=== PATIENT | female | born 1985 | race Caucasian/White ===

== ENCOUNTER 2016-09-19 06:12 | Day surgery (SDC) | payer OTHER ==
[2016-09-18 14:12] VITALS: BMI 23.8
--- NOTE | 2016-09-18 17:21 | HP ---
Admitting History and Physical - Admission Chief Complaint: Chronic nasal obstruction/sinusitis History of Present Illness: 31 yo female with chronic nasal congestion/sinus pressure and headaches with loss of smell. Symptoms unrelieved with medical therapy. Pt noted to have DNS, enlarged turbinates and chronic sinusitis. History Source: Patient Limitations to Obtaining History: No Limitations - Past Medical History ...LMP: 09/05/16 Psych: Yes: Anxiety ENT: Yes: Sinusitis - Past Surgical History Past Surgical History: Yes: None - Smoking History Smoking history: Never smoked Have you smoked in the past 12 months: No Aproximately how many cigarettes per day: 0 - Alcohol/Substance Use Hx Alcohol Use: No Home Medications - Allergies Allergies/Adverse Reactions: Allergies Allergy/AdvReac Type Severity Reaction Status Date / Time IV CONTRAST Allergy Hives Uncoded 09/18/16 14:12 - Home Medications Home Medications: Ambulatory Orders Botulinum Toxin A [Botox (Nf)] 100 units IJ ASDIR 09/18/16 Buspirone HCl [Buspar -] 5 mg PO HS 09/18/16 Loratadine [Claritin] 10 mg PO PRN 09/18/16 Paroxetine HCl [Paxil] 20 mg PO TID 09/18/16 Family Disease History - Family Disease History Family History: Unremarkable Review of Systems - Review of Systems Constitutional: reports: No Symptoms HENT: reports: Nasal Congestion Neck: reports: No Symptoms Neurological: reports: Headache Physical Examination Constitutional: Yes: Well Nourished, No Distress Eyes: Yes: WNL HENT: Yes: Nasal Congestion, Other (deviated nasal septum, enlarged turbinates) Respiratory: Yes: WNL Musculoskeletal: Yes: WNL Extremities: Yes: WNL Neurological: Yes: Alert, Oriented Imaging - Results Cat Scan: Report Reviewed, Image Reviewed Problem List - Problems (1) Deviated nasal septum Assessment/Plan: Pt for septoplasty/SMR of turbinates Code(s): J34.2 - DEVIATED NASAL SEPTUM (2) Chronic sinusitis Assessment/Plan: PT for Endoscopic sinus surgery Code(s): J32.9 - CHRONIC SINUSITIS, UNSPECIFIED Qualifiers: Sinusitis location: pansinusitis Qualified Code(s): J32.4 - Chronic pansinusitis Assessment/Plan Pt for septoplasty/SMR of turbinates and ESS.
[2016-09-19] MEDS ORDERED: COCAINE HCL 4% TOPICAL SOLUTION 4 ML BOTTLE TP ONE ×2 (07:25→08:23)
[2016-09-19] MEDS ORDERED: LIDOCAINE 1%/EPI 1:100000 (50 ML MULTI DOSE VIAL) ONE (07:30)
[2016-09-19] MEDS ORDERED: ROCURONIUM BROMIDE 50 MG/5 ML VIAL ONE (07:55)
[2016-09-19] MEDS ORDERED: PROPOFOL 20 ML ONE ×3 (07:55→10:20)
[2016-09-19] MEDS ORDERED: MIDAZOLAM HCL 2 MG/2 ML SINGLE DOSE VIAL ONE ×2 (07:56)
[2016-09-19] MEDS ORDERED: DEXAMETHASONE SOD PHOSPHATE 4 MG/1 ML VIAL ONE (08:21)
[2016-09-19] MEDS ORDERED: LIDOCAINE 1%/EPI 1:100000 (50 ML MULTI DOSE VIAL) INF ONE (08:23)
[2016-09-19] MEDS ORDERED: DESFLURANE GAS 240 ML BOTTLE IH ONE (08:47)
[2016-09-19] MEDS ORDERED: oxyCODONE HCL 5 MG TABLET PO PRN (09:28)
[2016-09-19] MEDS ORDERED: ONDANSETRON 4 MG/2 ML VIAL IVPUSH PRN (09:28)
[2016-09-19] MEDS ORDERED: PROMETHAZINE HCL 25 MG/1 ML VIAL IVPUSH PRN (09:28)
[2016-09-19] MEDS ORDERED: LACTATED RINGERS SOLUTION 1,000 ML IV SCH (09:30)
[2016-09-19] MEDS ORDERED: BACITRACIN 30 GM TUBE TOPICAL OINTMENT ONE (10:10)
--- NOTE | 2016-09-19 10:18 | HP ---
History & Physical Update - History History: No Change - Physical Physical: No Change - Assessment Assessment: No Change - Plan Plan: No Change
[2016-09-19 12:30] VITALS: TEMP 99
[2016-09-19 13:57] VITALS: BP 128/74; PULSE 84
--- NOTE | 2016-09-20 14:01 | PATH ---
Surgical Pathology Report Patient Name: GUERO BRASWELL Med. Rec. #: [id number] /Age/Gender: 1985 (Age: 31) / F Account: [id number] Location: [facility] Taken: 09/19/2016 Received: 09/19/2016 Reported: 09/20/2016 Physicians: Kevin Richard M.D. Specimen(s) Received A: NASAL SEPTUM B: RIGHT MAXILLARY & ETHMOID TISSUE C: LEFT MAXILLARY & ETHMOID TISSUE Clinical History Deviated nasal septum Final Diagnosis A. NASAL SEPTUM, SEPTOPLASTY: BONE AND CARTILAGE WITHOUT SIGNIFICANT PATHOLOGIC CHANGES. B. MAXILLARY AND ETHMOID TISSUE, RIGHT, RESECTION: SINONASAL MUCOSA WITH CHRONIC INFLAMMATION AND FRAGMENTS OF SCLEROTIC APPEARING BONE. C. MAXILLARY AND ETHMOID TISSUE, LEFT, RESECTION: SINONASAL MUCOSA WITH CHRONIC INFLAMMATION AND FRAGMENTS OF SCLEROTIC APPEARING BONE. Electronically Signed Didier Bean M.D. Gross Description A. Received in formalin labeled "nasal septum" is a 2.7 x 1.3 x 0.3 cm aggregate of graff, irregular portions of bone and cartilage. A technical sales representatives portion is submitted in one cassette, following decalcification. B. Received in formalin labeled "right maxillary and ethmoid" is a 2.5 x 2.5 x 0.3 cm aggregate of graff soft tissue fragments admixed with possible cartilage and bone fragments. The specimen is entirely submitted in one cassette, following decalcification. C. Received in formalin labeled "left maxillary and ethmoid tissue" is a 2.3 x 2.3 x 0.3 cm aggregate of graff soft tissue fragments admixed with possible cartilage and bone fragments. The specimen is entirely submitted in one cassette, following decalcification. 09/19/2016 saudi09/19/2016
--- NOTE | 2016-09-20 16:11 | OP ---
DATE OF OPERATION: 09/19/2016 PREOPERATIVE DIAGNOSES: 1. Deviated nasal septum with obstruction. 2. Bilateral inferior turbinate hypertrophy with obstruction. 3. Chronic bilateral maxillary sinusitis. 4. Chronic bilateral ethmoid sinusitis. 5. Bilateral sphenoid sinusitis. POSTOPERATIVE DIAGNOSES 1. Deviated nasal septum with obstruction. 2. Bilateral inferior turbinate hypertrophy with obstruction. 3. Chronic bilateral maxillary sinusitis. 4. Chronic bilateral ethmoid sinusitis. 5. Bilateral sphenoid sinusitis. PROCEDURE 1. Septoplasty. 2. Submucosal resection of bilateral inferior turbinates. 3. Endoscopic sinus surgery with stereotactic navigation with bilateral total ethmoidectomies, bilateral maxillary antrostomies with tissue removal, and bilateral sphenoidotomies. ANESTHESIA: General, Eli Schaefer MD ESTIMATED BLOOD LOSS: 25 mL. FINDINGS: 1. Markedly deviated nasal septum with obstruction. 2. Bilateral inferior turbinate hypertrophy with obstruction. 3. Chronic maxillary sinusitis with polypoid changes. 4. Chronic ethmoid sinusitis with polypoid changes. 5. Chronic sphenoid sinusitis. INDICATIONS: The patient is a 31-year-old female with long history of chronic nasal obstruction, recurrent headaches and chronic sinusitis, all unrelieved with medical therapy. The patient presents for surgical intervention. The risks, benefits, alternatives of the procedure were all explained to the patient. Questions were answered and consent was signed. DESCRIPTION OF PROCEDURE: After obtaining informed consent, the patient was brought to the operating room and placed on the OR table in supine position. After induction of general anesthesia, was prepped and draped in the usual sterile fashion. V[employer] stereotactic navigation system was set up and the patient was registered with excellent accuracy. Nasal pledgets soaked in 4% cocaine were placed in the nasal cavity followed by injection of 1% lidocaine with epinephrine into the nasal septal flaps and inferior turbinates. After allowing anesthesia to take effect, a No. 15 blade was used to make a left hemitransfixion incision. Dissection was carried down to the septal cartilage. The left mucoperichondrial flap was raised over the deviated portion of the septum. Once isolated anterior to the deflection but leaving a large dorsal and collateral L strut, an incision was made through the septal cartilage. An side flap was raised intact and the deviated portion of the septum was isolated. The cartilaginous portion was removed with sharp dissection and swivel knife. Bony septum was removed using William forceps. Once removed, the airway appeared improved. Flaps were then reapproximated with 4-0 quilting plain stitch. Suture end of the incision was closed with 4-0 chromic suture. Next, attention was turned to the inferior turbinates. Left inferior turbinate was medialized. Stab incision was made anterior tip. Submucosal dissection was carried out with removal of soft tissue and anterior turbinate bone. Intramural cauterization with suction Bovie cautery was then performed. Flaps were then reapproximated. The turbinate lateralized. A similar procedure in similar fashion was performed on the right inferior turbinate. Once completed, the airway appeared markedly improved. Next, the 0-degree Storz telescope and the endoscopic sinus equipment was then brought into the field. Lidocaine with epinephrine, 1%, pledgets were placed in the region of the medial meatus, followed by injection of 1% lidocaine with epinephrine into the tip of the inferior turbinate, the root as well as the uncinate process. After allowing time for anesthesia to take effect, the right side was examined, again confirming position throughout with the navigation system. The ethmoid cells were entered. Ethmoidectomy was performed from the anterior-posterior fashion with straight and upbiting Blakesley forceps. Polypoid tissue was removed throughout the cells and, again, position was confirmed with image guidance. Next, the uncinate process was also taken down. The curved seeker was used to identify the right maxillary ostia. Using a sidebiter, maxillary antrostomy was performed and further polypoid tissue was removed from the maxillary sinus and sent to Pathology. Then, with use of the image guidance suction, the anterior wall of the sphenoid sinus was identified and sphenoidotomy was performed with suction removal of mucus. Once finished, again, pledgets were placed in the region for hemostasis. Upon palpation of the globe, no fat herniation was noted. Next, attention was then turned to the left side, where again, the middle turbinate was lateralized and the incision was made in the uncinate process, which was then taken down using straight and upbiting forceps. Total ethmoidectomy was performed from an anterior to posterior fashion, again confirming anatomy with the image guidance system. Next, the curved suction was again used to identify the left maxillary ostia. This was outfractured and separator was used to perform maxillary antrostomy and further tissue was removed and sent to Pathology. Lastly, the anterior wall of the sphenoid sinus was identified and entered with removal of mucus. Again, further hemostasis was achieved using pledgets in the middle meatus. Once hemostasis was achieved, again, no significant fat herniation was noted. No significant bleeding was noted. Miragel was placed to help stent open the medial meatus and Nasopore packing was placed inferiorly to help support the septum and control hemostasis. dressing was placed at the end of the procedure. The patient was then awoken from anesthesia, extubated and transferred to the recovery room awake, alert, in stable condition where she was noted to have intact vision and normal extraocular movements. MOOKIE KISER M.D. [id number]
== END 2016-09-19 13:45 | disposition home or self-care (01) ==
LOC: JASU-SURG 06:12
PROVIDERS: ATTEND Otolaryngology
PROC: 8E09XBZ Computer Assisted Procedure of Head and Neck Region (ICD-10-PCS; 2016-09-19)
PROC: 09TV4ZZ Resection of Left Ethmoid Sinus, Percutaneous Endoscopic Approach (ICD-10-PCS; 2016-09-19)
PROC: 09TU4ZZ Resection of Right Ethmoid Sinus, Percutaneous Endoscopic Approach (ICD-10-PCS; 2016-09-19)
PROC: 099R4ZZ Drainage of Left Maxillary Sinus, Percutaneous Endoscopic Approach (ICD-10-PCS; 2016-09-19)
PROC: 099Q4ZZ Drainage of Right Maxillary Sinus, Percutaneous Endoscopic Approach (ICD-10-PCS; 2016-09-19)
PROC: 09CX4ZZ Extirpation of Matter from Left Sphenoid Sinus, Percutaneous Endoscopic Approach (ICD-10-PCS; 2016-09-19)
PROC: 09CW4ZZ Extirpation of Matter from Right Sphenoid Sinus, Percutaneous Endoscopic Approach (ICD-10-PCS; 2016-09-19)
PROC: 09BM4ZZ Excision of Nasal Septum, Percutaneous Endoscopic Approach (ICD-10-PCS; principal; 2016-09-19 08:00)
PROC: 09TL4ZZ Resection of Nasal Turbinate, Percutaneous Endoscopic Approach (ICD-10-PCS; 2016-09-19 08:00)
PROC: 8E09XBG Computer Assisted Procedure of Head and Neck Region, With Computerized Tomography (ICD-10-PCS; 2016-09-19 08:00)
DX: J34.2 Deviated nasal septum (principal); J34.3 Hypertrophy of nasal turbinates; J32.2 Chronic ethmoidal sinusitis; J32.0 Chronic maxillary sinusitis; J32.3 Chronic sphenoidal sinusitis
CPT/HCPCS: 84703; 88302-TC; 88304-TC; 88311-TC; 94760

== ENCOUNTER 2016-09-22 12:40 | Emergency (ER) | payer OTHER ==
[2016-09-22 12:53] VITALS: BP 115/72; PULSE 97; TEMP 98.2; BMI 23.8
[2016-09-22] MEDS ORDERED: ONDANSETRON 4 MG/2 ML VIAL IVPUSH ONE (13:20)
[2016-09-22] MEDS ORDERED: SODIUM CHLORIDE 1,000 ML IV STA (13:21)
[2016-09-22] MEDS ORDERED: FAMOTIDINE 20 MG/50 ML IVPB 20 MG in PREMIX 50 IVPB ONE (13:21)
--- NOTE | 2016-09-22 13:26 | PDOC ---
History of Present Illness - General Chief Complaint: Nausea/Vomiting Stated Complaint: POST OP, VOMITING Time Seen by Provider: 09/22/16 13:05 History Source: Patient Exam Limitations: No Limitations - History of Present Illness Initial Comments: 09/22/16 13:21 CHIEF COMPLAINT: Vomiting HISTORY OF PRESENT ILLNESS: This is an otherwise healthy 31 year old female, POD #3 s/p septoplasty and endoscopic sinus surgery (discharged on codeine for pain control). She presents with three days of abdominal pain and vomiting. She notes that there is some blood in her vomitus, but that she was told by her ENT that some post-procedural nasal bleeding was normal. She has been unable to keep down any fluids. V/s on arrival are notable for P 97. PCP is Consuelo Armando. REVIEW OF SYSTEMS: GENERAL/CONSTITUTIONAL: No fever or chills. No weakness. No weight change. HEAD, EYES, EARS, NOSE AND THROAT: No change in vision. No ear pain or discharge. No sore throat. CARDIOVASCULAR: No chest pain or palpitations. RESPIRATORY: No cough, wheezing, or shortness of breath. GASTROINTESTINAL: See HPI. GENITOURINARY: No dysuria, frequency, or change in urination. MUSCULOSKELETAL: No joint or muscle swelling or pain. No neck or back pain. SKIN: No rash or easy bruising. NEUROLOGIC: No headache, vertigo, loss of consciousness, or loss of sensation. PSYCHIATRIC: No depression or anxiety. ENDOCRINE: No increased thirst. No abnormal weight change. HEMATOLOGIC/LYMPHATIC: No anemia, easy bleeding, or history of blood clots. ALLERGIC/IMMUNOLOGIC: No hives or skin allergy. No latex allergy. PHYSICAL EXAM: GENERAL: The patient is awake, alert, and fully oriented, in no acute distress. HEAD: Normal with no signs of trauma. ENT: Pupils equal, round and reactive to light, extraocular movements intact, sclera anicteric, conjunctiva clear. Neck supple. LUNGS: Clear to auscultation bilaterally. Normal excursion. No respiratory distress or use of accessory muscles. CV: RRR, S1/S2, no MRG. Cap refill < 2 sec. ABDOMEN: Soft, non-distended, tender to palpation in RLQ. EXTREMITIES: Normal range of motion, no edema. NEUROLOGICAL: Normal speech, normal gait. CN II-XII grossly intact. PSYCH: Normal mood, normal affect. SKIN: Warm, dry, normal turgor, no rashes or lesions noted. Past History - Past Medical History Allergies/Adverse Reactions: Allergies Allergy/AdvReac Type Severity Reaction Status Date / Time No Known Drug Allergies Allergy Verified 09/22/16 12:48 IV CONTRAST Allergy Hives Uncoded 09/22/16 12:48 Home Medications: Ambulatory Orders Buspirone HCl [Buspar -] 5 mg PO HS 09/18/16 Loratadine [Claritin] 10 mg PO PRN 09/18/16 Ondansetron [Zofran Odt -] 4 mg SL TID PRN #21 od.tablet 09/22/16 Anemia: Yes Asthma: No Cancer: No Cardiac Disorders: No CVA: No COPD: No CHF: No Dementia: (hx migraines) Diabetes: No GI Disorders: Yes (H PYLORI) Disorders: No HTN: No Hypercholesterolemia: No Liver Disease: No Psychiatric Problems: Yes (depression) Suicide Attempt (Hx): No Seizures: No (hx hand tremors) Thyroid Disease: No Other medical history: hx migraines&hx hand tremors - Psycho/Social/Smoking Cessation Hx Anxiety: Yes Suicidal Ideation: No Smoking Status: No Smoking History: Never smoked Have you smoked in the past 12 months: No Number of Cigarettes Smoked Daily: 0 Hx Alcohol Use: No Drug/Substance Use Hx: No Substance Use Type: None *Physical Exam - Vital Signs Last Vital Signs Temp Pulse Resp BP Pulse Ox 98.2 F 97 H 18 115/72 98 09/22/16 12:48 09/22/16 12:48 09/22/16 12:48 09/22/16 12:48 09/22/16 12:48 ED Treatment Course - LABORATORY CBC & Chemistry Diagram: 09/22/16 13:30 09/22/16 13:30 - RADIOLOGY Radiology Studies Ordered: Category Date Time Status ABDOMEN & PELVIS CT W/O CONTR [CT] Stat CT Scan 09/22/16 13:21 Ordered Medical Decision Making - Medical Decision Making 09/22/16 13:31 A/P: 31 year old female with post-operative nausea/vomiting and abdominal pain. Differential includes codeine adverse effects, appendicitis (RLQ tenderness), UTI/pyelonephritis. 1. UA/culture, urine 2. Abdominal labs 3. IV fluids 4. Zofran 4mg IVP 5. CTAP without contrast (not tolerating PO, allergy to IV contrast) 6. Re-assess 09/22/16 14:22 WBC within normal limits at 7.9. UA with 1+ ketones, consistent with dehydration. 09/22/16 15:05 -Labs unremarkable. *DC/Admit/Observation/Transfer Diagnosis at time of Disposition: Nausea and vomiting Qualifiers: Vomiting type: unspecified Vomiting Intractability: non-intractable Qualified Code(s): R11.2 - Nausea with vomiting, unspecified Abdominal pain Qualifiers: Abdominal location: right lower quadrant Qualified Code(s): R10.31 - Right lower quadrant pain - Discharge Dispostion Disposition: HOME Condition at time of disposition: Stable - Prescriptions Prescriptions: Ondansetron [Zofran Odt -] 4 mg SL TID PRN #21 od.tablet PRN Reason: Nausea - Referrals Referrals: Zaida Armando [Primary Care Provider] - 3 days - Patient Instructions Printed Discharge Instructions: DI for Vomiting -- Adult Additional Instructions: You were seen today for abdominal pain and nausea/vomiting. Symptoms may be related to codeine. Try taking acetaminophen alone for pain. Use Zofran as needed for nausea/vomiting. Follow up with your primary care doctor next week. Return here for inability to keep down fluids, worsening belly pain, or any other concerning symptoms.
[2016-09-22] MEDS ORDERED: ONDANSETRON 4 MG/2 ML VIAL ONE (13:45)
[2016-09-22] MEDS ORDERED: FAMOTIDINE 20 MG/50 ML IVPB 50 ML IVPB ONE (13:46)
[2016-09-22 14:08] LABS: BASOPHIL 0.4 % (0-2.0); EOSINOPHIL 1.9 % (0-4.5); MCH 27.7 pg (25.7-33.7); MCHC 33.4 g/dl (32.0-36.0); MEAN CELL VOLUME 83.1 fl (80-96); MEAN PLT VOLUME 7.8 fl (7.5-11.1); NEUTROPHILS 67.3 % (42.8-82.8); PLATELET COUNT 241 K/MM3 (134-434); WHITE BLOOD COUNT 7.9 K/mm3 (4.0-10.0)
[2016-09-22 14:15] LABS: URINE APPEARANCE CLEAR; URINE BILIRUBIN NEGATIVE (NEGATIVE); URINE BLOOD NEGATIVE (NEGATIVE); URINE COLOR LTYELLOW; URINE GLUCOSE (UA) NEGATIVE (NEGATIVE); URINE KETONE 1+ (NEGATIVE); URINE LEUK ESTERASE NEGATIVE (NEGATIVE); URINE NITRITE NEGATIVE (NEGATIVE); URINE PROTEIN NEGATIVE (NEGATIVE); URINE UROBILINOGEN NEGATIVE E.U./dl (0.2-1.0)
[2016-09-22] MEDS ORDERED: SODIUM CHLORIDE 1,000 ML IV SCH (14:30)
[2016-09-22 14:37] LABS: ALBUMIN 3.8 g/dl (3.4-5.0); ANION GAP 10 (8-16); CALCIUM 9.2 mg/dL (8.5-10.1); CO2 29 mmol/L (21-32); GLUCOSE,RANDOM 91 mg/dL (74-106)
[2016-09-22 14:40] LABS: ALK PHOS 50 U/L (45-117); BILIRUBIN,TOTAL 0.7 mg/dL (0.2-1.0); CREATININE 0.7 mg/dL (0.55-1.02); SGOT/AST 23 U/L (15-37); SGPT/ALT 30 U/L (12-78); TOT PROT 7.7 g/dl (6.4-8.2)
== END 2016-09-22 17:41 | disposition home or self-care (01) ==
LOC: JER 12:40
PROC: 3E033GC Introduction of Other Therapeutic Substance into Peripheral Vein, Percutaneous Approach (ICD-10-PCS; principal; 2016-09-22)
DX: T81.89XA Other complications of procedures, not elsewhere classified, initial encounter (principal); R11.2 Nausea with vomiting, unspecified
CPT/HCPCS: 36415; 74176-TC; 80053; 81003; 83690; 84703; 85025; 96365; 96375; 99282-25

== ENCOUNTER 2017-10-23 08:00 | Inpatient (IN) | payer OTHER ==
--- NOTE | 2017-10-26 09:53 | HP ---
DATE OF ADMISSION: 11/06/2017 DATE OF DICTATION: 09/20/2017 DATE OF SURGERY: 11/06/2017 BRIEF HISTORY: This is a 32-year-old female who in June was evaluated by Dr. Thomas for rectal bleeding and a strong family history of colon cancer. At that time, she underwent a full colonoscopy from anus to a large 6-cm tubulovillous polyp at approximately 20 cm from the anal verge. The polyp was completely removed endoscopically during that procedure. 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 The patient was then subsequently brought back and endoscopically underwent tattooing on the distal side and has now been referred here for surgical management. Patient has a strong family history of colon cancer, grandmother as well as grandmother's brother. PAST MEDICAL HISTORY: Significant for peptic ulcer disease, anxiety/depressive disorder, and a history of keloids. PAST SURGICAL HISTORY: Patient has had a nasal surgery. ALLERGIES: IV CONTRAST and DUST. MEDICATIONS: 1. Tylenol. 2. Orthotricycline. 3. Cyproheptadine. 4. Ciprodex. 5. Iron. 6. Paxil. 7. Buspirone. 8. Cetirizine. SOCIAL HISTORY: Patient does not smoke, and she drinks socially. PHYSICAL EXAMINATION: Abdomen: Soft, nontender, nondistended. She has a scar above the umbilicus from her previous umbilical ring. She has a small umbilical hernia noted. This is an incidental finding. Rectal: Deferred. Patient had a full colonoscopy. IMPRESSION/PLAN: Colon cancer. This is a 32-year-old female with biopsy-proven colon cancer at approximately 20 cm. Patient underwent tattooing procedure on the rectal side at the previous polypectomy site. Patient will be scheduled for a laparoscopic low anterior resection, possible open. Prior to any surgical intervention, patient has already been scheduled by her junior mechanical engineer for a CT of the abdomen and pelvis with and without contrast to evaluate for metastatic disease. The indications, alternatives, and complications of the procedure discussed at length. All questions have been answered. We will plan to obtain written consent the day of surgery. Stephanie ARIZMENDI [id number] SMALL[facility] HOSPITALHaile
[2017-11-06] MEDS ORDERED: SODIUM PHOSPHATE/NA BIPHOS 133 ML ENEMA PR SCH (09:00)
[2017-11-06] MEDS ORDERED: D5-1/2NS+20 MEQ KCL - 20 MEQ/1,000 ML INFUS.BAG IV SCH (09:00)
[2017-11-06] MEDS ORDERED: PEG3350/SOD SULF,BICARB,CL/KCL 4,000 ML SOLN.RECON PO ONE (10:45)
[2017-11-06 11:24] VITALS: BMI 26.6
[2017-11-06] MEDS: LACTATED RINGERS SOLUTION 1,000 ML IV SCH ×2 (11:37→19:30)
[2017-11-06] MEDS ORDERED: ACETAMINOPHEN 325 MG TABLET (FP) PO PRN (18:46)
[2017-11-06] MEDS ORDERED: busPIRone HCL 5 MG TABLET PO SCH (22:00)
[2017-11-07] MEDS: LACTATED RINGERS SOLUTION 1,000 ML IV SCH ×3 (02:45→16:30)
[2017-11-07] MEDS ORDERED: SODIUM PHOSPHATE/NA BIPHOS 133 ML ENEMA PR SCH (06:00)
[2017-11-07] MEDS ORDERED: ERTAPENEM SODIUM 1 GM in SODIUM CHLORIDE 100 ML IVPB ONE (07:00)
[2017-11-07 07:32] LABS: HEMATOCRIT 35.5 % (32.4-45.2); MCH 27.8 pg (25.7-33.7); MCHC 33.8 g/dl (32.0-36.0); MEAN CELL VOLUME 82.2 fl (80-96); MEAN PLT VOLUME 7.7 fl (7.5-11.1); PLATELET COUNT 286 K/MM3 (134-434); RBC 4.33 M/mm3 (3.60-5.2); RDW 14.5 % (11.6-15.6); WHITE BLOOD COUNT 8.1 K/mm3 (4.0-10.0)
[2017-11-07 07:49] LABS: CHLORIDE 105 mmol/L (98-107); POTASSIUM 3.5 mmol/L (3.5-5.1); SODIUM 141 mmol/L (136-145)
[2017-11-07 08:00] LABS: ANION GAP 9 (8-16); BLOOD UREA NITROGEN 3 mg/dL (7-18); CALCIUM 8.4 mg/dL (8.5-10.1); CO2 27 mmol/L (21-32); CREATININE 0.8 mg/dL (0.55-1.02); GLUCOSE,RANDOM 85 mg/dL (74-106)
[2017-11-07] MEDS ORDERED: PT OWN MED DRAWER 7, Y5N ONE (08:50)
[2017-11-07] MEDS ORDERED: LACTATED RINGERS SOLUTION 1,000 ML IV SCH ×2 (09:45→13:30)
[2017-11-07] MEDS ORDERED: ONDANSETRON 4 MG/2 ML VIAL IVPUSH PRN ×3 (09:45→13:24)
[2017-11-07] MEDS ORDERED: PROPOFOL 20 ML ONE ×2 (09:53→11:57)
[2017-11-07] MEDS ORDERED: ROCURONIUM BROMIDE 50 MG/5 ML VIAL ONE ×2 (09:53→10:59)
[2017-11-07] MEDS ORDERED: fentaNYL CITRATE 250 MCG/5 ML VIAL ONE ×2 (09:53→11:36)
[2017-11-07] MEDS ORDERED: MIDAZOLAM HCL 2 MG/2 ML SINGLE DOSE VIAL ONE (09:53)
[2017-11-07] MEDS ORDERED: ONDANSETRON 4 MG/2 ML VIAL ONE (09:54)
[2017-11-07] MEDS ORDERED: DEXAMETHASONE SOD PHOSPHATE 4 MG/1 ML VIAL ONE (09:54)
[2017-11-07] MEDS ORDERED: LIDOCAINE HCL/PF 2% SDV 5ML VIAL ONE (09:54)
[2017-11-07] MEDS ORDERED: GlUCAGON HUMAN RECOMBINANT 1 MG/VIAL ONE (10:28)
[2017-11-07] MEDS ORDERED: ERTAPENEM SODIUM 1 GM/50 ML PRE-DOCKED IVPB ONE (10:43)
[2017-11-07] MEDS ORDERED: NEOSTIGMINE METHYLSULFATE 0.5 MG/ML - 10 ML MDV ONE (11:54)
[2017-11-07] MEDS ORDERED: GLYCOPYRROLATE 0.2 MG/1 ML VIAL ONE (11:54)
--- NOTE | 2017-11-07 13:16 | OP ---
Operative Note - Note: Operative Date: 11/07/17 Pre-Operative Diagnosis: colon cancer Operation: laparoscopic low anterior resection Findings: tattooed sigmoid colon with previous biopsy site Post-Operative Diagnosis: Same as Pre-op Surgeon: Darek Feliz [employer] Supervisor: Nitesh Quick Anesthesia: General Specimens Removed: sigmoid colon with portion of rectum Estimated Blood Loss (mls): 30 Drains & Tubes with Location: kirsten pelvis Operative Report Dictated: Yes
[2017-11-07] MEDS ORDERED: PROMETHAZINE HCL 25 MG/1 ML VIAL IVPUSH PRN (13:24)
--- NOTE | 2017-11-07 14:20 | OP ---
DATE OF OPERATION: 11/06/2017 PREOPERATIVE DIAGNOSIS: Sigmoid colon cancer. POSTOPERATIVE DIAGNOSIS: Sigmoid colon cancer. PROCEDURE: Laparoscopic low anterior resection, splenic flexure takedown, anal dilatation, rigid sigmoidoscopy, peritoneal lavage. SURGEON: Darek Feliz MD UTILITY BAG ASSEMBLER: Nitesh Quick DO ANESTHESIA: Karla Diaz MD (general) ESTIMATED BLOOD LOSS: Minimal. SPECIMEN: Portion of rectosigmoid. INDICATION FOR PROCEDURE: This is a 32-year-old female who was evaluated by Dr. Thomas for rectal bleeding. She has a strong family history of colon cancer. She was noted to have a tumor at 20 cm that was completely removed. Pathology ultimately on that polyp was carcinoma. She is here for definitive surgical management. She underwent preoperative CT scan that demonstrated no evidence of acute metastatic disease. DESCRIPTION OF PROCEDURE: The patient was identified and appropriately positioned on the operating room table. After placement of general anesthesia, the abdomen was prepped and draped in the usual sterile fashion with ChloraPrep. The patient was placed in a low lithotomy position. A supraumbilical incision was made deep into subcutaneous tissue. The fascia was divided sharply. The peritoneum incised under direct vision. A Veress needle followed by an 11-mm port placed. The remaining ports were placed under direct vision as well. Upon placement of the camera, it was obvious the tattooed area. This was in the distal sigmoid/proximal rectum. The rectosigmoid was lifted to the anterior abdominal wall. The sigmoid pedicle was identified and subsequently isolated circumferentially and divided with the LigaSure device. Four welds were placed prior to complete division. The peritoneal reflection on either side of the rectum was then scored with the LigaSure device. The rectum now mobilized out of the presacral space with blunt dissection. The superior hemorrhoidals were taken on either side with the LigaSure device. Four welds were placed prior to complete division. The distal line of resection was chosen to be in the mid rectum. The fat around the rectum at this level was then circumferentially isolated and removed using the LigaSure device. Next, the left colon was then mobilized medially. In doing so, the left peritoneal reflection was identified. This reflection was divided, and the left retroperitoneal space was easily identified along with the gonadal vessels as well as her left ureter. The right ureter was visualized as well entering the pelvis during the takedown of the right side of the peritoneal reflection. At this point, the colon was now rolled more medially. Due to the generosity of the resection, a splenic flexure had to be taken down to allow a tension-free anastomosis. The patient now placed in reverse Trendelenburg, and the splenocolic ligament was sharply divided and vessels were taken with the LigaSure device. The colon now removed out of the retroperitoneum with blunt dissection, and the loose retroperitoneal attachments were taken down with LigaSure device. A portion of the gastrocolic was taken down with LigaSure device as well, and the renal colic ligaments were divided in a similar fashion. This allowed complete mobilization of the distal transverse and left colon to be mobilized into the left hemiabdomen and allow a tension-free anastomosis. Once the colon was adequately mobilized, the colon was then subsequently divided with an Endo SAWYER 60 purple load stapler. One staple load was used; however, the staple did go through the colon completely, but there was approximately 1/2 cm worth that was not transected, therefore, a 2nd fire was used just at the staple line. Next, a 3-inch transverse suprapubic incision was made deep into subcutaneous tissue. The fascia of the obliques was divided transversely. Using the Pfannenstiel technique, the abdomen was entered again. At this point, a wound protector was then subsequently placed. The area toweled off and draped. The proximally divided colon was then brought out through this opening. Proximal line resection was chosen a good foot and a half or so away from the blue tattooed area. A colotomy was made and an EEA 28 anvil placed and the colotomy closed with a SAWYER 80/3.8-mm stapler. The EEA anvil was then spiked through the central aspect of the SAWYER staple line and then sewn with a single 3-0 Prolene pursestring. The colon returned to its anatomic position. The surgeon and showroom sales assistant now changed gown and gloves. The specimen was handed off to pathology. Pathology did a gross inspection, and the closest margin was 6 cm (the distal side of the colon) from the staple line. The biopsy site is seen well by pathologist. The peritoneum was then reapproximated with a running 3-0 Maxon suture. The fascia of the rectus muscle was then reapproximated with a running No. 1 PDS suture. The subcutaneous space irrigated. At this point, the abdomen was reinsufflated and the showroom sales assistant went below to perform anal dilatation to approximately 3-4 fingerbreadths followed by serial dilators were placed to the rectal stump staple line small, medium, and large. Next, a stapler was placed under direct vision and guided to the rectal stump staple line. The stapler itself was then spiked through the mid aspect of the staple line. The 2 ends made it. There was no twisting of the ends, and there was no twisting of the proximally divided colon. The stapler was subsequently fired and the stapler removed. Grossly, there were no breaks in the EEA staple line, and it appeared to be hemostatic. At this point, the showroom sales assistant then performed rigid sigmoidoscopy just proximal to the staple line. Air was insufflated. The staple line itself was submerged in the pelvis under water and air leak tested on 3 separate accounts with handblown pressure of the rigid sigmoidoscopy. There were no air bubbles identified on 3 separate occasions. The air was removed, and the air that had passed proximal to the staple line was milked back through the staple line, and again, no leaks were noted. This ruled out a ball valve effect. The showroom sales assistant now performed a limited sigmoidoscopy to the staple line itself, and grossly there was no bleeding, and there was grossly no breaks in the staple line itself, and the mucosa was pink on either side of the staple line. On the outside from the laparoscopic perspective, the colon demonstrated no evidence of ischemia and neither did the rectal stump. A 10 flat JOSEE was placed under direct vision and placed in the presacral space. The abdomen irrigated. Once again irrigant retrieved and noted to be clear, and the operative field was hemostatic. The ports were removed. The port sites were noted to be hemostatic, and the fascia at the 12 mm supraumbilical port site was reapproximated with interrupted 0 Vicryl suture. All skin closed with margarito followed by Dermabond. At the conclusion of this case, sponge and needle counts were correct. ATTESTATION: The brief operative note was done on the computer. Stephanie ARIZMENDI [id number] cc: Sterling Thomas MD MTDD
[2017-11-07] MEDS: morphine SULFATE 4 MG/ML VIAL IVPB PRN (18:29)
[2017-11-07] MEDS: PARoxetine HCL 20 MG TABLET (FP) PO SCH (20:50)
[2017-11-07] MEDS ORDERED: busPIRone HCL 5 MG TABLET PO SCH (22:00)
[2017-11-07] MEDS: busPIRone HCL 5 MG TABLET PO SCH (23:02)
[2017-11-08] MEDS: oxyCODONE HCL 5 MG TABLET PO PRN (05:58)
[2017-11-08 07:37] LABS: HEMOGLOBIN 10.9 GM/dL (10.7-15.3); MCH 28.1 pg (25.7-33.7); MCHC 34.1 g/dl (32.0-36.0); MEAN CELL VOLUME 82.4 fl (80-96); MEAN PLT VOLUME 8.2 fl (7.5-11.1); PLATELET COUNT 264 K/MM3 (134-434); RBC 3.88 M/mm3 (3.60-5.2); RDW 14.6 % (11.6-15.6)
[2017-11-08] MEDS ORDERED: PT OWN MED DRAWER 7, Y5N ONE (07:48)
[2017-11-08 08:00] LABS: CHLORIDE 104 mmol/L (98-107); POTASSIUM 3.7 mmol/L (3.5-5.1); SODIUM 137 mmol/L (136-145)
[2017-11-08] MEDS ORDERED: ERTAPENEM SODIUM 1 GM in SODIUM CHLORIDE 50 ML IVPB ONE (08:00)
[2017-11-08 08:15] LABS: ANION GAP 8 (8-16); BLOOD UREA NITROGEN 5 mg/dL (7-18); CALCIUM 8.2 mg/dL (8.5-10.1); CO2 25 mmol/L (21-32); CREATININE 0.7 mg/dL (0.55-1.02); GLUCOSE,RANDOM 88 mg/dL (74-106); PHOSPHOROUS 3.7 mg/dL (2.5-4.9)
[2017-11-08] MEDS: ENOXAPARIN NA (PORCINE) 40 MG/0.4 ML DISP.SYRIN SQ SCH (09:44)
[2017-11-08] MEDS: PARoxetine HCL 20 MG TABLET (FP) PO SCH (09:44)
[2017-11-08] MEDS: PANTOPRAZOLE SODIUM 40 MG VIAL IVPUSH SCH (09:45)
--- NOTE | 2017-11-08 13:16 | PN ---
Progress Note (short form) - Note Progress Note: POD #1 - s/p laparoscopic low anterior resection under GA. VSS. Pt. doing well, resting comfortably in bed. No complaints. No apparent anesthetic complications noted. Continue current care.
--- NOTE | 2017-11-08 14:56 | PN ---
Progress Note (short form) - Note Progress Note: surgery pt seen and examined. felt hot when walking and sat in a chair and passed out. Says this happens all the time. no requiring pain meds. afebrile abd- soft, nt, incisions clean, kirsten sanguinous Laboratory Tests 11/08/17 06:15 WBC 10.0 u/o 1950 A/P 1) Pod#1- npo, ivf, posada, kirsten 2) oxycodone, morphine 3) prophylaxis- lovenox, protonix, oob, spirometer, finish invanz 4) psych- on home meds 5) colon ca- follow path
[2017-11-08] MEDS: morphine SULFATE 4 MG/ML VIAL IVPB PRN (19:53)
[2017-11-08] MEDS: busPIRone HCL 5 MG TABLET PO SCH (22:19)
[2017-11-09] MEDS: LACTATED RINGERS SOLUTION 1,000 ML IV SCH ×3 (02:04→18:35)
[2017-11-09] MEDS: PARoxetine HCL 20 MG TABLET (FP) PO SCH (10:25)
[2017-11-09] MEDS: ENOXAPARIN NA (PORCINE) 40 MG/0.4 ML DISP.SYRIN SQ SCH (10:26)
[2017-11-09] MEDS: PANTOPRAZOLE SODIUM 40 MG VIAL IVPUSH SCH (10:26)
[2017-11-09] MEDS: ACETAMINOPHEN 325 MG TABLET (FP) PO PRN (10:28)
[2017-11-09] MEDS: morphine SULFATE 4 MG/ML VIAL IVPB PRN ×2 (10:52→20:20)
[2017-11-09 11:58] LABS: HEMATOCRIT 33.2 % (32.4-45.2); HEMOGLOBIN 11.1 GM/dL (10.7-15.3); MCH 27.3 pg (25.7-33.7); MCHC 33.4 g/dl (32.0-36.0); MEAN CELL VOLUME 81.6 fl (80-96); MEAN PLT VOLUME 7.9 fl (7.5-11.1); PLATELET COUNT 267 K/MM3 (134-434); RBC 4.07 M/mm3 (3.60-5.2); RDW 14.9 % (11.6-15.6); WHITE BLOOD COUNT 9.1 K/mm3 (4.0-10.0)
[2017-11-09 12:41] LABS: ALBUMIN 3.1 g/dl (3.4-5.0); ALK PHOS 48 U/L (45-117); ANION GAP 9 (8-16); BILIRUBIN,TOTAL 0.5 mg/dL (0.2-1.0); BLOOD UREA NITROGEN 6 mg/dL (7-18); CALCIUM 8.2 mg/dL (8.5-10.1); CHLORIDE 103 mmol/L (98-107); CO2 25 mmol/L (21-32); CREATININE 0.5 mg/dL (0.55-1.02); GLUCOSE,RANDOM 67 mg/dL (74-106); PHOSPHOROUS 3.1 mg/dL (2.5-4.9); POTASSIUM 3.7 mmol/L (3.5-5.1); SGOT/AST 12 U/L (15-37); SGPT/ALT 12 U/L (12-78); SODIUM 137 mmol/L (136-145); TOT PROT 6.6 g/dl (6.4-8.2)
--- NOTE | 2017-11-09 18:02 | PN ---
Progress Note (short form) - Note Progress Note: surgery pt seen and examined. Better today. ambulating. flatus. mother visiting. afebrile abd- soft, nt, incisions clean, kirsten serous Laboratory Tests 11/09/17 11:24 WBC 9.1 A/P 1) Pod#2- npo, ivf, posada, kirsten 2) oxycodone, morphine 3) prophylaxis- lovenox, protonix, oob, spirometer, off invanz 4) psych- on home meds 5) colon ca- follow path
[2017-11-09] MEDS ORDERED: PT OWN MED DRAWER 7, Y5N ONE (20:54)
[2017-11-09] MEDS: busPIRone HCL 5 MG TABLET PO SCH (21:45)
[2017-11-10 07:34] LABS: BASO % 0.4 % (0-2.0); EOS % 4.5 % (0-4.5); HEMATOCRIT 31.4 % (32.4-45.2); HEMOGLOBIN 10.7 GM/dL (10.7-15.3); LYMPH % 13.2 % (8-40); MCHC 34.2 g/dl (32.0-36.0); MONO % 6.1 % (3.8-10.2); NEUT % 75.8 % (42.8-82.8); PLATELET COUNT 246 K/MM3 (134-434); RBC 3.83 M/mm3 (3.60-5.2); RDW 14.4 % (11.6-15.6); WHITE BLOOD COUNT 8.9 K/mm3 (4.0-10.0)
[2017-11-10 08:26] LABS: CHLORIDE 102 mmol/L (98-107); POTASSIUM 3.9 mmol/L (3.5-5.1); SODIUM 136 mmol/L (136-145)
[2017-11-10 08:51] LABS: ANION GAP 11 (8-16); BLOOD UREA NITROGEN 7 mg/dL (7-18); CALCIUM 7.9 mg/dL (8.5-10.1); CO2 23 mmol/L (21-32); CREATININE 0.5 mg/dL (0.55-1.02); GLUCOSE,RANDOM 61 mg/dL (74-106); PHOSPHOROUS 3.1 mg/dL (2.5-4.9)
[2017-11-10] MEDS ORDERED: PT OWN MED DRAWER 7, Y5N ONE ×4 (09:32→22:00)
[2017-11-10] MEDS: PANTOPRAZOLE SODIUM 40 MG VIAL IVPUSH SCH (09:36)
[2017-11-10] MEDS: PARoxetine HCL 20 MG TABLET (FP) PO SCH (09:36)
[2017-11-10] MEDS: ENOXAPARIN NA (PORCINE) 40 MG/0.4 ML DISP.SYRIN SQ SCH (09:36)
[2017-11-10] MEDS: LACTATED RINGERS SOLUTION 1,000 ML IV SCH ×2 (09:37→21:28)
--- NOTE | 2017-11-10 11:10 | PN ---
Progress Note (short form) - Note Progress Note: surgery pt seen and examined. still with gas but some gas pain as well. no nausea. walked some. afebrile abd- soft, mild distension, kirsten serous Laboratory Tests 11/10/17 06:00 WBC 8.9 A/P 1) Pod#3- npo, ivf, posada, kirsten 2) oxycodone, morphine 3) prophylaxis- lovenox, protonix, oob, spirometer, off invanz 4) psych- on home meds 5) colon ca- follow path
[2017-11-10] MEDS: morphine SULFATE 4 MG/ML VIAL IVPB PRN (11:20)
[2017-11-10] MEDS: busPIRone HCL 5 MG TABLET PO SCH (22:02)
[2017-11-11 08:51] LABS: BASO % 0.4 % (0-2.0); EOS % 3.9 % (0-4.5); HEMATOCRIT 33.8 % (32.4-45.2); HEMOGLOBIN 11.3 GM/dL (10.7-15.3); LYMPH % 11.9 % (8-40); MCH 27.4 pg (25.7-33.7); MCHC 33.4 g/dl (32.0-36.0); MEAN CELL VOLUME 81.9 fl (80-96); MEAN PLT VOLUME 8.3 fl (7.5-11.1); NEUT % 76.8 % (42.8-82.8); PLATELET COUNT 295 K/MM3 (134-434); RBC 4.13 M/mm3 (3.60-5.2); RDW 14.7 % (11.6-15.6); WHITE BLOOD COUNT 8.2 K/mm3 (4.0-10.0)
[2017-11-11] MEDS: PARoxetine HCL 20 MG TABLET (FP) PO SCH (09:19)
[2017-11-11] MEDS: ENOXAPARIN NA (PORCINE) 40 MG/0.4 ML DISP.SYRIN SQ SCH (09:19)
[2017-11-11] MEDS: PANTOPRAZOLE SODIUM 40 MG VIAL IVPUSH SCH (09:20)
[2017-11-11 09:59] LABS: ANION GAP 12 (8-16); CALCIUM 8.3 mg/dL (8.5-10.1); CHLORIDE 103 mmol/L (98-107); CO2 22 mmol/L (21-32); CREATININE 0.5 mg/dL (0.55-1.02); GLUCOSE,RANDOM 61 mg/dL (74-106); PHOSPHOROUS 2.7 mg/dL (2.5-4.9); POTASSIUM 3.8 mmol/L (3.5-5.1); SODIUM 137 mmol/L (136-145)
[2017-11-11 10:03] LABS: BLOOD UREA NITROGEN 7 mg/dL (7-18)
--- NOTE | 2017-11-11 12:05 | PN ---
Progress Note (short form) - Note Progress Note: surgery pt seen and examined. flatus and bm. no discomfort. ambultaing. happy. afebrile abd- soft, nd, kirsten serous Laboratory Tests 11/11/17 07:30 WBC 8.2 Hgb 11.3 A/P 1) Pod#4- full liquids, stop ivf, d/c posada, cont kirsten 2) oxycodone, morphine 3) prophylaxis- lovenox, protonix, oob, spirometer, off invanz 4) psych- on home meds 5) colon ca- follow path
[2017-11-11] MEDS: morphine SULFATE 4 MG/ML VIAL IVPB PRN (21:08)
[2017-11-11] MEDS ORDERED: PT OWN MED DRAWER 7, Y5N ONE (21:34)
[2017-11-11] MEDS: busPIRone HCL 5 MG TABLET PO SCH (21:35)
[2017-11-11] MEDS: oxyCODONE HCL 5 MG TABLET PO PRN (23:41)
[2017-11-12] MEDS: LACTATED RINGERS SOLUTION 1,000 ML IV SCH (07:20)
[2017-11-12 07:48] LABS: BASO % 0.6 % (0-2.0); EOS % 5.6 % (0-4.5); HEMATOCRIT 34.4 % (32.4-45.2); HEMOGLOBIN 11.6 GM/dL (10.7-15.3); LYMPH % 15.3 % (8-40); MCH 27.4 pg (25.7-33.7); MCHC 33.7 g/dl (32.0-36.0); MEAN CELL VOLUME 81.2 fl (80-96); MEAN PLT VOLUME 7.9 fl (7.5-11.1); MONO % 9.5 % (3.8-10.2); PLATELET COUNT 315 K/MM3 (134-434); RBC 4.24 M/mm3 (3.60-5.2); RDW 14.7 % (11.6-15.6); WHITE BLOOD COUNT 7.9 K/mm3 (4.0-10.0)
[2017-11-12] MEDS ORDERED: PT OWN MED DRAWER 7, Y5N ONE ×2 (10:28→10:40)
[2017-11-12] MEDS: PANTOPRAZOLE SODIUM 40 MG VIAL IVPUSH SCH (10:30)
[2017-11-12] MEDS: PARoxetine HCL 20 MG TABLET (FP) PO SCH (10:30)
[2017-11-12] MEDS: ENOXAPARIN NA (PORCINE) 40 MG/0.4 ML DISP.SYRIN SQ SCH (10:30)
[2017-11-12 14:30] VITALS: BP 109/71; PULSE 102; TEMP 98.1
[2017-11-12] MEDS: ACETAMINOPHEN 325 MG TABLET (FP) PO PRN (15:00)
[2017-11-12] MEDS: oxyCODONE HCL 5 MG TABLET PO PRN (15:07)
--- NOTE | 2017-11-12 20:47 | DS ---
DATE OF ADMISSION: 11/06/2017 DATE OF DISCHARGE: 11/12/2017 ADMITTING DIAGNOSIS: Colon cancer. DISCHARGE DIAGNOSIS: Colon cancer. BRIEF HISTORY: This is a 32-year-old female who was admitted to [facility] on November 06 for surgical management of previously biopsied colon cancer. She underwent bowel preparation and IV hydration. On November 07, she underwent a laparoscopic low anterior resection. Please reference Dr. Darek Feliz's operative report for further details. Postoperatively, she had an uncomplicated course. She is being discharged home today, November 12, tolerating liquid diet. She is having bowel movements, passing gas. Her incision is clean. Her abdomen is soft and nondistended at the time of discharge. Her Marcelino-Quan drain has been removed. She will go home on a liquid diet for the next 48 hours. At which point, she will advance to a regular diet. She will follow with Dr. Feliz in approximately 1 week's time, be evaluated for staple removal and to review her pathology. At the time of discharge, her pathology report is unavailable. She will resume her usual home medications of BuSpar and Paxil, and she will have a new prescription for Percocet which she will take as needed for pain. DO LEDY HANDY/[id number]
--- NOTE | 2017-11-13 12:29 | PATH ---
Surgical Pathology Report Patient Name: GUERO BRASWELL Med. Rec. #: [id number] /Age/Gender: 1985 (Age: 32) / F Account: [id number] Location: [facility] MED/SURG Taken: 11/07/2017 Received: 11/07/2017 Reported: 11/13/2017 Physicians: Darek Quick M.D. Specimen(s) Received A: MALIGNANT NEOPLASM OF SIGMOID COLON (FROZEN) B: PROXIMAL MARGIN OF COLON C: DISTAL MARGIN OF COLON Clinical History Malignant neoplasm of sigmoid colon Intraoperative Consult Diagnosis Rectosigmoid colon, gross exam: A tattooed area approximately 6 cm from one of the margins was identified. This area seemed to have firm, fibrotic change, suggestive of prior biopsy site. Donald Whelan M.D., 11/07/17 Final Diagnosis A. RECTOSIGMOID COLON, RESECTION: NO RESIDUAL CARCINOMA IN THE COLON. PREVIOUS BIOPSY SITE WITH FIBROSIS AT THE TATTOOED AREA. PROXIMAL, DISTAL, AND CIRCUMFERENTIAL MARGINS ARE NEGATIVE FOR TUMOR. ONE OUT OF FOURTEEN (1/14) LYMPH NODES IS POSITIVE FOR METASTATIC CARCINOMA. ONE TUMOR DEPOSIT SEEN IN THE MESENTERIC FATTY TISSUE. pTNM STAGE (AJCC TNM 8 th edition) : pT1 pN1a (the stage is incorporated with prior biopsy result [id number]). B. COLON, PROXIMAL MARGIN: NEGATIVE FOR CARCINOMA. C. COLON, DISTAL MARGIN: NEGATIVE FOR CARCINOMA. Interdepartmental case reviewed with consensus on diagnosis. This case was discussed with Dr. Feliz on November 13, 2017. Comments Colorectal Carcinoma :Surgical Pathology Cancer Case Summary (Based on AJCC TNM 8 th edition) This report has been incorporated with prior biopsy result ([id number]). Procedure Rectosigmoidectomy Tumor Site Rectosigmoid region Tumor Size Cannot be determined due to fragmented nature of the biopsy material ([id number]). Please correlate with colonoscopy findings. Macroscopic Tumor Perforation Not identified Histologic Type Adenocarcinoma Histologic Grade G1: Well differentiated Tumor Extension Tumor invades submucosa Margins Proximal Margin Uninvolved by invasive carcinoma Distal Margin Uninvolved by invasive carcinoma Radial or Mesenteric Margin Uninvolved by invasive carcinoma Treatment Effect No known presurgical therapy Lymphovascular Invasion Not identified Perineural Invasion Not identified Tumor Deposits Present Specify number of deposits: 1 Regional Lymph Nodes Lymph Node Examination Number of Lymph Nodes Involved: 1 Number of Lymph Nodes Examined: 14 Pathologic Stage Classification (pTNM, AJCC 8th Edition) Primary Tumor (pT) pT1: Tumor invades the submucosa (through the muscularis mucosa but not into the muscularis propria) Regional Lymph Nodes (pN) pN1a: One regional lymph node is positive Electronically Signed Eric Whelan M.D. Addendum Reported: 11/21/2017 Addendum Diagnosis Additional three lymph nodes were found and entirely submitted. Three Lymph nodes: Negative for metastatic carcinoma. Addendum Comment The total lymph node number is seventeen (17) for the specimen [id number]. Eric Whelan M.D. Gross Description A. Received fresh labeled "rectosigmoid colon," is a 16 cm in length portion of bowel with 2 stapled mucosal margins and abundant attached pericolonic adipose tissue. The serosa is graff-pink and displays a focal black tattoo melissa. The mucosa is graff with flattened folds. There is thickened mucosa in the area of the tattoo. The tattoo is 6 cm from the closest mucosal margin and 2 cm from the circumferential margin. No definite mucosal mass is identified grossly. Sectioning of the pericolonic adipose tissue reveals multiple lymph nodes ranging from 0.3-1.0 cm in greatest dimension. An intraoperative gross examination is performed. Rehabilitation Construction Specialist sections are submitted in 17 cassettes as follows: 1-mucosal margin closest to tattoo; 2-opposing mucosal margin; 3-shave of circumferential margin; 0-6-jksmyuun from tattoo; 4-3-ttnqpgzgdx mucosa; 9-14-one whole bisected lymph node each; 65-35-jtfmijqe whole possible lymph nodes each. B. Received in formalin labeled "proximal margin colon," is a 1.8 cm in diameter anular portion of bowel, consistent with a donut. No discrete lesions are identified. A data entry representative section is submitted in one cassette. C. Received in formalin labeled "distal margin colon," is a 1.7 cm in diameter annular portion of bowel, consistent with a doughnut. No discrete lesions are identified. A data entry representative section is submitted in one cassette. 11/07/201711/07/2017
== END 2017-11-12 16:40 | disposition home or self-care (01) | DRG 221 ==
LOC: J7W 11-06 10:20 → EDSTATUS 11-07 08:00 → J8W 11-07 17:23
PROVIDERS: ADMIT Surgery; ATTEND Surgery
PROC: 0DTN4ZZ Resection of Sigmoid Colon, Percutaneous Endoscopic Approach (ICD-10-PCS; principal; 2017-11-06)
PROC: 0DJD8ZZ Inspection of Lower Intestinal Tract, Via Natural or Artificial Opening Endoscopic (ICD-10-PCS; 2017-11-06)
PROC: 3E1M38X Irrigation of Peritoneal Cavity using Irrigating Substance, Percutaneous Approach, Diagnostic (ICD-10-PCS; 2017-11-06)
DX: C18.7 Malignant neoplasm of sigmoid colon (principal)
CPT/HCPCS: 36415; 80048; 80053; 83735; 84100; 84703; 85025; 85027; 88305-TC; 88307-TC; 94010; 94760

== ENCOUNTER 2018-01-11 09:12 | Day surgery (SDC) | payer OTHER ==
[2018-01-10 15:05] VITALS: BMI 24.9
[2018-01-11 09:46] LABS: EOS % 4.6 % (0-4.5); HEMATOCRIT 37.3 % (32.4-45.2); HEMOGLOBIN 12.5 GM/dL (10.7-15.3); LYMPH % 21.1 % (8-40); MCH 27.2 pg (25.7-33.7); MCHC 33.5 g/dl (32.0-36.0); MEAN CELL VOLUME 81.3 fl (80-96); MEAN PLT VOLUME 8.2 fl (7.5-11.1); MONO % 6.8 % (3.8-10.2); NEUT % 66.5 % (42.8-82.8); PLATELET COUNT 262 K/MM3 (134-434); RBC 4.59 M/mm3 (3.60-5.2); RDW 14.4 % (11.6-15.6); WHITE BLOOD COUNT 6.8 K/mm3 (4.0-10.0)
[2018-01-11 10:09] LABS: INR 1.04 (0.82-1.09); PROTHROMBIN TIME (PATIENT) 11.8 SEC (9.7-13.0)
[2018-01-11] MEDS ORDERED: PORTA CATH FLUSH 10 ML IVPUSH PRN (11:11)
[2018-01-11] MEDS ORDERED: MIDAZOLAM HCL 2 MG/2 ML SINGLE DOSE VIAL ONE (11:37)
[2018-01-11 14:55] VITALS: BP 112/75; PULSE 75; TEMP 97.7
== END 2018-01-11 14:45 | disposition home or self-care (01) ==
LOC: JRADIR 09:12
PROVIDERS: ATTEND Internal Medicine Hematology & Oncology
PROC: 02HV33Z Insertion of Infusion Device into Superior Vena Cava, Percutaneous Approach (ICD-10-PCS; principal; 2018-01-11)
PROC: B518ZZA Fluoroscopy of Superior Vena Cava, Guidance (ICD-10-PCS; 2018-01-11)
DX: C18.9 Malignant neoplasm of colon, unspecified (principal)
CPT/HCPCS: 36561; 77001; C1751; 36415; 84703; 85025; 85610; C1788

== ENCOUNTER 2018-01-14 07:34 | Day surgery (SDC) | payer OTHER ==
[2018-01-14] MEDS ORDERED: PALONOSETRON HCL 0.25 MG/5 ML VIAL IVPUSH ONE (08:00)
[2018-01-14] MEDS ORDERED: DEXAMETHASONE INJECTION 20 MG in SODIUM CHLORIDE 50 ML IVPB ONE (08:00)
[2018-01-14] MEDS ORDERED: OXALIPLATIN 160 MG in DEXTROSE 5%-WATER - 500 ML IV ONE (08:30)
[2018-01-14] MEDS ORDERED: DEXTROSE 5% IVPB ONE (08:30)
[2018-01-14] MEDS ORDERED: WATER IVPB ONE (08:30)
[2018-01-14] MEDS ORDERED: LEUCOVORIN IVPB ONE (08:30)
[2018-01-14] MEDS ORDERED: FLUOROURACIL 2,500 MG/50 ML VIAL IVPUSH ONE (10:30)
[2018-01-14] MEDS ORDERED: FLUOROURACIL 4,500 MG in SODIUM CHLORIDE 2 ML CP ONE (10:45)
[2018-01-14 11:57] LABS: BASO % 0.5 % (0-2.0); EOS % 4.1 % (0-4.5); HEMATOCRIT 35.2 % (32.4-45.2); HEMOGLOBIN 11.6 GM/dL (10.7-15.3); LYMPH % 19.1 % (8-40); MCH 26.6 pg (25.7-33.7); MCHC 32.8 g/dl (32.0-36.0); MEAN CELL VOLUME 81.1 fl (80-96); MEAN PLT VOLUME 8.5 fl (7.5-11.1); MONO % 7.6 % (3.8-10.2); NEUT % 68.7 % (42.8-82.8); PLATELET COUNT 259 K/MM3 (134-434); RBC 4.34 M/mm3 (3.60-5.2); RDW 14.6 % (11.6-15.6); WHITE BLOOD COUNT 6.2 K/mm3 (4.0-10.0)
[2018-01-14 12:17] LABS: ALBUMIN 3.7 g/dl (3.4-5.0); ALK PHOS 51 U/L (45-117); ANION GAP 6 (8-16); BILIRUBIN,DIRECT < 0.2 mg/dL (0.0-0.2); BILIRUBIN,TOTAL 0.4 mg/dL (0.2-1.0); BLOOD UREA NITROGEN 7 mg/dL (7-18); CHLORIDE 106 mmol/L (98-107); CO2 28 mmol/L (21-32); CREATININE 0.7 mg/dL (0.55-1.02); GLUCOSE,RANDOM 76 mg/dL (74-106); MAGNESIUM 2.1 mg/dL (1.8-2.4); POTASSIUM 4.1 mmol/L (3.5-5.1); SGOT/AST 10 U/L (15-37); SGPT/ALT 14 U/L (12-78); SODIUM 140 mmol/L (136-145); TOT PROT 7.6 g/dl (6.4-8.2)
[2018-01-14] MEDS ORDERED: DEXAMETHASONE SOD PHOSPHATE 10 MG/1 ML VIAL ONE (14:39)
[2018-01-14] MEDS ORDERED: DEXAMETHASONE SOD PHOSPHATE 20 MG/5 ML VIAL IVPB ONE (14:46)
[2018-01-14] MEDS ORDERED: RANITIDINE HCL 50 MG/2 ML VIAL IVPB ONE (15:30)
[2018-01-14 16:44] VITALS: TEMP 97.9
--- NOTE | 2018-01-14 18:48 | PN ---
Progress Note (short form) - Note Progress Note: Patient developed some itchiness in the throat and lumpiness in the throat after completing oxaliplatin infusion It was bothersome No dyspnea/abdominal pain/urinary/bowel symptoms Last Vital Signs Temp Pulse Resp BP Pulse Ox 97.9 F 82 16 126/68 01/14/18 14:45 01/14/18 14:45 01/14/18 14:45 01/14/18 14:45 Cor: RSR, No murmurs, No gallops Lungs: Clear to P&A Abd: Soft, Normal bowel sounds, No organomegaly Ext:No significant edema Abnormal Lab Results 01/14/18 11:20 Anion Gap 6 L AST 10 L Active Medications Generic Name Dose Route Start Last Admin Trade Name Freq PRN Reason Stop Dose Admin Fluorouracil 4,500 mg/ Sodium 92 mls @ 2 mls/hr 01/14/18 10:45 01/14/18 16:39 Chloride CP 01/16/18 08:44 2 mls/hr ONCE ONE Administration A/P 32 y/o patient onFOLFOX Developed mild allergic reaction after ? oxaliplatin ---lumpiness and itchiness in the troat Resolved with repeat dexamethasone/benadryl/zantac To f/u with Dr. Bryant next week
[2018-01-14 18:49] VITALS: BP 121/70; PULSE 70
== END 2018-01-14 18:10 | disposition home or self-care (01) ==
LOC: JONCCHEMO 07:34 → J7W 11:06 → JONCCHEMO 18:10
PROVIDERS: ATTEND Internal Medicine Hematology & Oncology
PROC: 3E04305 Introduction of Other Antineoplastic into Central Vein, Percutaneous Approach (ICD-10-PCS; principal; 2018-01-14)
PROC: 3E04305 Introduction of Other Antineoplastic into Central Vein, Percutaneous Approach (ICD-10-PCS; 2018-01-14)
PROC: 3E043GC Introduction of Other Therapeutic Substance into Central Vein, Percutaneous Approach (ICD-10-PCS; 2018-01-14)
DX: Z51.11 Encounter for antineoplastic chemotherapy (principal); C18.7 Malignant neoplasm of sigmoid colon
CPT/HCPCS: 36415; 80053; 80076; 83735; 85025; 96368; 96375; 96409; 96413; 96415; 96417; G0498; J1100; J2469; J9263

== ENCOUNTER 2018-01-16 07:35 | Day surgery (SDC) | payer OTHER ==
[2018-01-16] MEDS ORDERED: DIPHENHYDRAMINE 25 MG in SODIUM CHLORIDE 100 ML IVPB ONE (14:56)
[2018-01-16] MEDS ORDERED: ONDANSETRON INJECTION 8 MG in SODIUM CHLORIDE 100 ML IVPUSH ONE (14:56)
[2018-01-16] MEDS ORDERED: ONDANSETRON 4 MG/2 ML VIAL ONE (14:56)
[2018-01-16 16:09] VITALS: PULSE 77; TEMP 98.4
[2018-01-16] MEDS ORDERED: PORTA CATH FLUSH 10 ML IVPUSH ONE (16:15)
[2018-01-16 16:16] VITALS: BP 115/56
== END 2018-01-16 16:30 | disposition home or self-care (01) ==
LOC: JONCCHEMO 07:35 → J7W 14:50 → JONCCHEMO 16:30
PROVIDERS: ATTEND Internal Medicine Hematology & Oncology
PROC: 3E043GC Introduction of Other Therapeutic Substance into Central Vein, Percutaneous Approach (ICD-10-PCS; principal; 2018-01-16)
DX: C18.7 Malignant neoplasm of sigmoid colon (principal)
CPT/HCPCS: 96365; 96417

== ENCOUNTER 2018-01-28 07:38 | Day surgery (SDC) | payer OTHER ==
[2018-01-28] MEDS ORDERED: DEXAMETHASONE INJECTION 20 MG in SODIUM CHLORIDE 50 ML IVPB ONE (10:00)
[2018-01-28] MEDS ORDERED: PALONOSETRON HCL 0.25 MG/5 ML VIAL IVPUSH ONE (10:00)
[2018-01-28] MEDS ORDERED: OXALIPLATIN 160 MG in DEXTROSE 5%-WATER - 500 ML IV ONE (10:30)
[2018-01-28] MEDS ORDERED: DEXTROSE 5% IVPB ONE (10:30)
[2018-01-28] MEDS ORDERED: WATER IVPB ONE (10:30)
[2018-01-28] MEDS ORDERED: LEUCOVORIN IVPB ONE (10:30)
[2018-01-28 11:18] LABS: BASO % 0.8 % (0-2.0); HEMOGLOBIN 12.2 GM/dL (10.7-15.3); LYMPH % 33.6 % (8-40); MCH 27.1 pg (25.7-33.7); MCHC 33.9 g/dl (32.0-36.0); MEAN PLT VOLUME 8.1 fl (7.5-11.1); MONO % 5.6 % (3.8-10.2); PLATELET COUNT 264 K/MM3 (134-434); RDW 14.2 % (11.6-15.6); WHITE BLOOD COUNT 4.8 K/mm3 (4.0-10.0)
[2018-01-28 11:44] LABS: BILIRUBIN,DIRECT < 0.2 mg/dL (0.0-0.2); MAGNESIUM 2.3 mg/dL (1.8-2.4); SGOT/AST 15 U/L (15-37); SGPT/ALT 30 U/L (12-78)
[2018-01-28 11:47] LABS: ALK PHOS 53 U/L (45-117); BILIRUBIN,TOTAL 0.2 mg/dL (0.2-1.0); TOT PROT 8.1 g/dl (6.4-8.2)
[2018-01-28] MEDS ORDERED: SODIUM CHLORIDE 1,000 ML IV SCH (12:15)
[2018-01-28] MEDS ORDERED: FLUOROURACIL 500 MG/10 ML VIAL IVPUSH ONE (12:30)
[2018-01-28] MEDS ORDERED: DEXAMETHASONE SOD PHOSPHATE 10 MG/1 ML VIAL IVPB ONE (12:30)
[2018-01-28] MEDS ORDERED: FLUOROURACIL 4,550 MG in SODIUM CHLORIDE 1 ML CP ONE (12:45)
[2018-01-28 13:23] LABS: ANION GAP 12 (8-16); BLOOD UREA NITROGEN 9 mg/dL (7-18); CALCIUM 9.2 mg/dL (8.5-10.1); CHLORIDE 110 mmol/L (98-107); CO2 20 mmol/L (21-32); GLUCOSE,RANDOM 97 mg/dL (74-106); SODIUM 142 mmol/L (136-145)
[2018-01-28 13:30] LABS: ALK PHOS 53 U/L (45-117); BILIRUBIN,TOTAL 0.2 mg/dL (0.2-1.0); CREATININE 0.8 mg/dL (0.55-1.02); SGOT/AST 15 U/L (15-37); SGPT/ALT 29 U/L (12-78)
[2018-01-28 18:26] VITALS: TEMP 97.4
[2018-01-28 18:43] VITALS: BP 128/81; PULSE 72
== END 2018-01-28 18:05 | disposition home or self-care (01) ==
LOC: JONCCHEMO 07:38 → J7W 12:30 → JONCCHEMO 18:05
PROVIDERS: ATTEND Internal Medicine Hematology & Oncology
DX: Z51.11 Encounter for antineoplastic chemotherapy (principal); C18.7 Malignant neoplasm of sigmoid colon
CPT/HCPCS: 96361; 96366; 96367; 96375; 96411; 96413; 96415; 96416; J9020; 36415; 80053; 80076; 83735; 85025; 96409; 96417; G0498; J1100; J2469; J7030; J9190; J9263

== ENCOUNTER 2018-01-30 07:17 | Day surgery (SDC) | payer OTHER ==
[2018-01-30] MEDS ORDERED: DEXTROSE 5%-NORMAL SALINE 250 ML IV SCH (12:30)
[2018-01-30] MEDS ORDERED: DEXAMETHASONE SOD PHOSPHATE 4 MG/1 ML VIAL IVPB ONE (12:30)
[2018-01-30] MEDS ORDERED: ONDANSETRON 4 MG/2 ML VIAL IVPB ONE (12:30)
[2018-01-30 16:21] VITALS: TEMP 98.3
[2018-01-30 16:23] VITALS: BP 112/71; PULSE 71
== END 2018-01-30 16:10 | disposition home or self-care (01) ==
LOC: JONCCHEMO 07:17 → J7W 12:20 → JONCCHEMO 16:10
PROVIDERS: ATTEND Internal Medicine Hematology & Oncology
PROC: 3E043GC Introduction of Other Therapeutic Substance into Central Vein, Percutaneous Approach (ICD-10-PCS; principal; 2018-01-30)
PROC: 3E043GC Introduction of Other Therapeutic Substance into Central Vein, Percutaneous Approach (ICD-10-PCS; 2018-01-30)
DX: C18.7 Malignant neoplasm of sigmoid colon (principal)
CPT/HCPCS: 96361; 96367; 96375

== ENCOUNTER 2018-02-11 07:25 | Day surgery (SDC) | payer OTHER ==
[2018-02-11] MEDS ORDERED: PALONOSETRON HCL 0.25 MG/5 ML VIAL IVPUSH ONE (10:00)
[2018-02-11] MEDS ORDERED: DEXAMETHASONE INJECTION 20 MG in SODIUM CHLORIDE 50 ML IVPB ONE (10:00)
[2018-02-11] MEDS ORDERED: DEXTROSE 5% IVPB ONE (10:30)
[2018-02-11] MEDS ORDERED: OXALIPLATIN 160 MG in DEXTROSE 5%-WATER - 500 ML IV ONE (10:30)
[2018-02-11] MEDS ORDERED: LEUCOVORIN IVPB ONE (10:30)
[2018-02-11] MEDS ORDERED: WATER IVPB ONE (10:30)
[2018-02-11] MEDS ORDERED: FLUOROURACIL 500 MG/10 ML VIAL IVPUSH ONE (12:30)
[2018-02-11] MEDS ORDERED: FLUOROURACIL 4,550 MG in SODIUM CHLORIDE 1 ML CP ONE (12:45)
[2018-02-11] MEDS ORDERED: LIDOCAINE 2.5%/PRILOCAINE 2.5% (5 Gram/TUBE) TP ONE (13:30)
[2018-02-11 13:42] LABS: BASO % 1.4 % (0-2.0); EOS % 2.7 % (0-4.5); HEMATOCRIT 33.4 % (32.4-45.2); HEMOGLOBIN 11.4 GM/dL (10.7-15.3); LYMPH % 49.4 % (8-40); MCH 27.1 pg (25.7-33.7); MCHC 34.1 g/dl (32.0-36.0); MEAN CELL VOLUME 79.3 fl (80-96); MEAN PLT VOLUME 7.7 fl (7.5-11.1); MONO % 11.6 % (3.8-10.2); NEUT % 34.9 % (42.8-82.8); PLATELET COUNT 175 K/MM3 (134-434); RBC 4.21 M/mm3 (3.60-5.2); RDW 14.3 % (11.6-15.6); WHITE BLOOD COUNT 2.9 K/mm3 (4.0-10.0)
[2018-02-11 14:04] LABS: ALBUMIN 3.7 g/dl (3.4-5.0); ALK PHOS 52 U/L (45-117); ANION GAP 8 (8-16); BILIRUBIN,DIRECT < 0.2 mg/dL (0.0-0.2); BILIRUBIN,TOTAL 0.2 mg/dL (0.2-1.0); BLOOD UREA NITROGEN 6 mg/dL (7-18); CALCIUM 8.6 mg/dL (8.5-10.1); CHLORIDE 106 mmol/L (98-107); CO2 25 mmol/L (21-32); CREATININE 0.6 mg/dL (0.55-1.02); GLUCOSE,RANDOM 106 mg/dL (74-106); MAGNESIUM 2.2 mg/dL (1.8-2.4); POTASSIUM 3.9 mmol/L (3.5-5.1); SGOT/AST 13 U/L (15-37); SGPT/ALT 20 U/L (12-78); SODIUM 139 mmol/L (136-145); TOT PROT 7.5 g/dl (6.4-8.2)
[2018-02-11] MEDS ORDERED: TBO-FILGRASTIM 480 MCG/0.8 ML DISP.SYRIN SQ ONE (15:30)
[2018-02-11] MEDS ORDERED: PORTA CATH FLUSH 10 ML IVPUSH ONE (17:14)
[2018-02-11 17:15] VITALS: BP 120/71; PULSE 77; TEMP 98.1
== END 2018-02-11 15:40 | disposition home or self-care (01) ==
LOC: JONCCHEMO 07:25 → J7W 12:35 → JONCCHEMO 15:40
PROVIDERS: ATTEND Internal Medicine Hematology & Oncology
PROC: 3E013GC Introduction of Other Therapeutic Substance into Subcutaneous Tissue, Percutaneous Approach (ICD-10-PCS; principal; 2018-02-11)
PROC: 3E043GC Introduction of Other Therapeutic Substance into Central Vein, Percutaneous Approach (ICD-10-PCS; 2018-02-11)
DX: C18.7 Malignant neoplasm of sigmoid colon (principal); Z76.89 Persons encountering health services in other specified circumstances
CPT/HCPCS: 36415; 80048; 80076; 83735; 85025; 96372; 96374; 96375; J1100; J1447; J2469

== ENCOUNTER 2018-02-26 07:31 | Day surgery (SDC) | payer OTHER ==
[2018-02-26] MEDS ORDERED: PALONOSETRON HCL 0.25 MG/5 ML VIAL IVPUSH ONE (08:00)
[2018-02-26] MEDS ORDERED: DEXAMETHASONE INJECTION 20 MG in SODIUM CHLORIDE 50 ML IVPB ONE (08:00)
[2018-02-26] MEDS ORDERED: WATER IVPB ONE (08:30)
[2018-02-26] MEDS ORDERED: LEUCOVORIN IVPB ONE (08:30)
[2018-02-26] MEDS ORDERED: DEXTROSE 5% IVPB ONE (08:30)
[2018-02-26] MEDS ORDERED: OXALIPLATIN 160 MG in DEXTROSE 5%-WATER - 500 ML IV ONE (08:30)
[2018-02-26] MEDS ORDERED: FLUOROURACIL 2,500 MG/50 ML VIAL IVPUSH ONE (10:30)
[2018-02-26] MEDS ORDERED: FLUOROURACIL 4,550 MG in SODIUM CHLORIDE 1 ML CP ONE (10:45)
[2018-02-26 13:11] LABS: BASO % 0.4 % (0-2.0); EOS % 0.2 % (0-4.5); HEMATOCRIT 34.3 % (32.4-45.2); HEMOGLOBIN 11.5 GM/dL (10.7-15.3); LYMPH % 9.6 % (8-40); MCH 26.8 pg (25.7-33.7); MCHC 33.5 g/dl (32.0-36.0); MEAN CELL VOLUME 79.9 fl (80-96); MEAN PLT VOLUME 9.2 fl (7.5-11.1); MONO % 1.3 % (3.8-10.2); NEUT % 88.5 % (42.8-82.8); PLATELET COUNT 186 K/MM3 (134-434); RBC 4.29 M/mm3 (3.60-5.2); RDW 15.1 % (11.6-15.6); WHITE BLOOD COUNT 7.5 K/mm3 (4.0-10.0)
[2018-02-26 13:56] LABS: ANION GAP 9 MMOL/L (8-16); BLOOD UREA NITROGEN 9 mg/dL (7-18); CALCIUM 8.8 mg/dL (8.5-10.1); CHLORIDE 104 mmol/L (98-107); CO2 25 mmol/L (21-32); CREATININE 0.6 mg/dL (0.55-1.02); GLUCOSE,RANDOM 102 mg/dL (74-106); POTASSIUM 3.8 mmol/L (3.5-5.1); SODIUM 138 mmol/L (136-145)
[2018-02-26 14:00] LABS: ALBUMIN 3.5 g/dl (3.4-5.0); ALK PHOS 48 U/L (45-117); BILIRUBIN,DIRECT < 0.2 mg/dL (0.0-0.2); BILIRUBIN,TOTAL 0.6 mg/dL (0.2-1.0); SGOT/AST 15 U/L (15-37); SGPT/ALT 20 U/L (12-78); TOT PROT 7.8 g/dl (6.4-8.2)
[2018-02-26 14:04] LABS: MAGNESIUM 1.9 mg/dL (1.8-2.4)
[2018-02-26 16:24] VITALS: TEMP 81
[2018-02-26] MEDS ORDERED: LIDOCAINE 2.5%/PRILOCAINE 2.5% (5 Gram/TUBE) TP ONE (17:00)
[2018-02-26 17:27] VITALS: BP 122/89; PULSE 89
[2018-02-28 06:06] LABS: SERUM IRON SATURATION 32 % (15-55); TOTAL IRON BINDING CAPACITY 381 ug/dL (250-450); UIBC 259 ug/dL (131-425)
== END 2018-02-26 17:28 | disposition home or self-care (01) ==
LOC: JONCCHEMO 07:31 → J7W 12:26 → JONCCHEMO 17:28
PROVIDERS: ATTEND Internal Medicine Hematology & Oncology
PROC: 3E04305 Introduction of Other Antineoplastic into Central Vein, Percutaneous Approach (ICD-10-PCS; principal; 2018-02-26)
PROC: 3E04305 Introduction of Other Antineoplastic into Central Vein, Percutaneous Approach (ICD-10-PCS; 2018-02-26)
PROC: 3E043GC Introduction of Other Therapeutic Substance into Central Vein, Percutaneous Approach (ICD-10-PCS; 2018-02-26)
DX: Z51.11 Encounter for antineoplastic chemotherapy (principal); C18.7 Malignant neoplasm of sigmoid colon
CPT/HCPCS: 36415; 80048; 80076; 82378; 82728; 83540; 83550; 83735; 85025; 96366; 96367; 96375; 96413; 96415; 96417; G0498; J1100; J2469; J9263

== ENCOUNTER 2018-02-28 07:35 | Day surgery (SDC) | payer OTHER ==
[2018-02-28] MEDS ORDERED: SODIUM CHLORIDE 1,000 ML IV ONE (16:00)
[2018-02-28 16:07] VITALS: TEMP 98.2
[2018-02-28] MEDS ORDERED: PORTA CATH FLUSH 10 ML IVPUSH ONE (16:18)
[2018-02-28 17:32] VITALS: BP 94/54; PULSE 69
== END 2018-02-28 19:46 | disposition home or self-care (01) ==
LOC: JONCCHEMO 07:35 → J7W 15:07 → JONCCHEMO 19:46
PROVIDERS: ATTEND Internal Medicine Hematology & Oncology
PROC: 3E0337Z Introduction of Electrolytic and Water Balance Substance into Peripheral Vein, Percutaneous Approach (ICD-10-PCS; principal; 2018-02-28)
DX: Z76.89 Persons encountering health services in other specified circumstances (principal); C18.7 Malignant neoplasm of sigmoid colon
CPT/HCPCS: 96360; 96361; J7030

== ENCOUNTER 2018-03-11 07:34 | Day surgery (SDC) | payer OTHER ==
[2018-03-11] MEDS ORDERED: PALONOSETRON HCL 0.25 MG/5 ML VIAL IVPUSH ONE (08:00)
[2018-03-11] MEDS ORDERED: DEXAMETHASONE INJECTION 20 MG in SODIUM CHLORIDE 50 ML IVPB ONE (08:00)
[2018-03-11] MEDS ORDERED: LEUCOVORIN IVPB ONE (08:30)
[2018-03-11] MEDS ORDERED: DEXTROSE 5% IVPB ONE (08:30)
[2018-03-11] MEDS ORDERED: OXALIPLATIN 160 MG in DEXTROSE 5%-WATER - 500 ML IV ONE (08:30)
[2018-03-11] MEDS ORDERED: WATER IVPB ONE (08:30)
[2018-03-11 09:51] LABS: BASO % 0.9 % (0-2.0); EOS % 11.8 % (0-4.5); HEMATOCRIT 33.9 % (32.4-45.2); LYMPH % 22.6 % (8-40); MCH 26.1 pg (25.7-33.7); MCHC 32.4 g/dl (32.0-36.0); MEAN CELL VOLUME 80.6 fl (80-96); MEAN PLT VOLUME 7.8 fl (7.5-11.1); MONO % 5.1 % (3.8-10.2); NEUT % 59.6 % (42.8-82.8); PLATELET COUNT 198 K/MM3 (134-434); RDW 15.6 % (11.6-15.6); WHITE BLOOD COUNT 4.4 K/mm3 (4.0-10.0)
[2018-03-11 10:11] LABS: ALBUMIN 3.9 g/dl (3.4-5.0); BILIRUBIN,DIRECT < 0.2 mg/dL (0.0-0.2); SGOT/AST 11 U/L (15-37); SGPT/ALT 17 U/L (13-61)
[2018-03-11 10:13] LABS: ALK PHOS 46 U/L (45-117); BILIRUBIN,TOTAL 0.4 mg/dL (0.2-1.0); TOT PROT 7.5 g/dl (6.4-8.2)
[2018-03-11] MEDS ORDERED: FLUOROURACIL 2,500 MG/50 ML VIAL IVPUSH ONE (10:30)
[2018-03-11] MEDS ORDERED: FLUOROURACIL 4,550 MG in SODIUM CHLORIDE 1 ML CP ONE (10:45)
[2018-03-11] MEDS ORDERED: LIDOCAINE 2.5%/PRILOCAINE 2.5% (5 Gram/TUBE) TP ONE (11:00)
[2018-03-11 12:40] LABS: ANION GAP 10 MMOL/L (8-16); BLOOD UREA NITROGEN 9 mg/dL (7-18); CALCIUM 8.5 mg/dL (8.5-10.1); CHLORIDE 107 mmol/L (98-107); CO2 23 mmol/L (21-32); CREATININE 0.6 mg/dL (0.55-1.3); GLUCOSE,RANDOM 86 mg/dL (74-106); POTASSIUM 3.9 mmol/L (3.5-5.1); SODIUM 140 mmol/L (136-145)
[2018-03-11 17:11] VITALS: BP 134/84; PULSE 94; TEMP 97.8
[2018-03-11] MEDS ORDERED: PORTA CATH FLUSH 10 ML IVPUSH ONE (17:11)
== END 2018-03-11 15:15 | disposition home or self-care (01) ==
LOC: JONCCHEMO 07:34 → J7W 10:18 → JONCCHEMO 15:15
PROVIDERS: ATTEND Internal Medicine Hematology & Oncology
DX: Z51.11 Encounter for antineoplastic chemotherapy (principal); C18.7 Malignant neoplasm of sigmoid colon
CPT/HCPCS: 36415; 80053; 80076; 82378; 83735; 84702; 85025; 96366; 96367; 96375; 96409; 96411; 96413; 96415; 96417; G0498; J1100; J2469; J9263

== ENCOUNTER 2018-03-13 20:44 | Inpatient (IN) | payer OTHER ==
[2018-03-13 21:40] VITALS: BP 102/64; PULSE 75; TEMP 99.4; BMI 24.6
--- NOTE | 2018-03-13 21:43 | PDOC ---
History of Present Illness - General Chief Complaint: Lightheaded Stated Complaint: EVALUATION Time Seen by Provider: 03/13/18 21:24 Past History - Past Medical History Allergies/Adverse Reactions: Allergies Allergy/AdvReac Type Severity Reaction Status Date / Time Iodinated Contrast- Oral and Allergy Verified 03/13/18 21:40 IV Dye IV CONTRAST Allergy Hives Uncoded 03/13/18 21:40 Home Medications: Ambulatory Orders Buspirone HCl [Buspar -] 15 mg PO HS 09/18/16 Paroxetine HCl [Paxil Cr] 37.5 mg PO DAILY 11/07/17 Loratadine [Claritin] 10 mg PO PRN 01/10/18 Anemia: Yes Asthma: No Cancer: Yes (colon) Cardiac Disorders: No CVA: No COPD: No CHF: No Dementia: (hx migraines) Diabetes: No GI Disorders: Yes (H PYLORI) Disorders: No HTN: No Hypercholesterolemia: No Liver Disease: No Psychiatric Problems: Yes (ANXIETY, DEPRESSION) Seizures: (hx hand tremors) Thyroid Disease: No ( CONTROL AFFECTED THYROID) - Surgical History Abdominal Surgery: Yes (COLECTOMY) Appendectomy: No Cholecystectomy: No Orthopedic Surgery: No - Suicide/Smoking/Psychosocial Hx Smoking Status: No Smoking History: Never smoked Have you smoked in the past 12 months: No Number of Cigarettes Smoked Daily: 0 Hx Alcohol Use: Yes (socially) Drug/Substance Use Hx: No Substance Use Type: None *Physical Exam - Vital Signs Last Vital Signs Temp Pulse Resp BP Pulse Ox 99.4 F 75 18 102/64 98 03/13/18 21:37 03/13/18 21:37 03/13/18 21:37 03/13/18 21:37 03/13/18 21:37 *DC/Admit/Observation/Transfer Diagnosis at time of Disposition: Nausea & vomiting Qualifiers: Vomiting type: unspecified Vomiting Intractability: non-intractable Qualified Code(s): R11.2 - Nausea with vomiting, unspecified - Discharge Dispostion Condition at time of disposition: Fair Decision to Admit order: Yes - Referrals - Patient Instructions - Post Discharge Activity
[2018-03-13 23:28] LABS: HEMATOCRIT 32.1 % (32.4-45.2); HEMOGLOBIN 10.8 GM/dL (10.7-15.3); MCH 26.7 pg (25.7-33.7); MCHC 33.6 g/dl (32.0-36.0); MEAN CELL VOLUME 79.4 fl (80-96); MEAN PLT VOLUME 8.2 fl (7.5-11.1); PLATELET COUNT 203 K/MM3 (134-434); RBC 4.05 M/mm3 (3.60-5.2); RDW 15.4 % (11.6-15.6); WHITE BLOOD COUNT 2.4 K/mm3 (4.0-10.0)
[2018-03-14 00:05] LABS: ALBUMIN 3.7 g/dl (3.4-5.0); ALK PHOS 45 U/L (45-117); ANION GAP 8 MMOL/L (8-16); BLOOD UREA NITROGEN 11 mg/dL (7-18); CALCIUM 8.8 mg/dL (8.5-10.1); CHLORIDE 104 mmol/L (98-107); CO2 25 mmol/L (21-32); CREATININE 0.6 mg/dL (0.55-1.3); GLUCOSE,RANDOM 87 mg/dL (74-106); MAGNESIUM 2.3 mg/dL (1.8-2.4); POTASSIUM 3.5 mmol/L (3.5-5.1); SGOT/AST 18 U/L (15-37); SGPT/ALT 25 U/L (13-61); SODIUM 137 mmol/L (136-145); TOT PROT 7.2 g/dl (6.4-8.2)
--- NOTE | 2018-03-14 08:07 | HP ---
History and Physical History and Physical: Patient seen and examined 03/13/18 around 10pm 33 y/o with colon cancer, well known to our service. On FOLFOX with 5- FU infusion. Patient needed pump disconnect today. Was at psychotherapy session when she developed hot flashes and nausea. HEr pump beeped at 11am today saying that the infusion was completed. She was instructed to stop it. She went to [facility] ER due to hotflash HAd 1 episode of vomiting, bilious. Had some abdominal pain. She refused blood draws and hydration in the ER she was ransferred here. currently asympomatuc and feels much better Refusing to stay back for [facility] Reports anxiety on staying in the hospital\no abdominalpain/n/v/. 1 nl bowel movemet in the ER Last Vital Signs Temp Pulse Resp BP Pulse Ox 99.4 F 75 18 102/64 98 03/13/18 21:37 03/13/18 21:37 03/13/18 21:37 03/13/18 21:37 03/13/18 21:37 Cor: RSR, No murmurs, No gallops Lungs: Clear to P&A Abd: Soft, Normal bowel sounds, No organomegaly Ext:No significant edema Skin: No rashes, Integument intact Labs/Meds reviewed A/P 33 y/o with colon cancer, well known to our service. On FOLFOX with 5- FU infusion. Patient needed pump disconnect today. Was at psychotherapy session when she developed hot flashes and nausea. HEr pump beeped at 11am today saying that the infusion was completed. She was instructed to stop it. She went to [facility] ER due to hotflash Disconnect 5-FU pump IV hydration Check labs Patient very anxious and wants to sign out against medical advise prior to labs Discussed in great detail with mother/daughter about bneed to r/o electrolyte impalance/renal dysfunctio/myelosuppression. Need to hydrate Paient adamant-- to sign out AMA Contact nos. given
== END 2018-03-13 23:45 | disposition left against medical advice (07) | DRG 240 ==
LOC: JER 20:44 → J7W 21:43
PROVIDERS: ADMIT Internal Medicine Hematology & Oncology; ATTEND Internal Medicine Hematology & Oncology
DX: C18.9 Malignant neoplasm of colon, unspecified (principal); R11.2 Nausea with vomiting, unspecified
CPT/HCPCS: 36415; 80053; 83735; 85027; 86850; 86900; 86901; 99281-25

== ENCOUNTER 2018-04-01 07:52 | Day surgery (SDC) | payer OTHER ==
[2018-04-01] MEDS ORDERED: PALONOSETRON HCL 0.25 MG/5 ML VIAL IVPUSH ONE (10:00)
[2018-04-01] MEDS ORDERED: DEXAMETHASONE INJECTION 20 MG in SODIUM CHLORIDE 50 ML IVPB ONE (10:00)
[2018-04-01] MEDS ORDERED: LEUCOVORIN IVPB ONE (10:30)
[2018-04-01] MEDS ORDERED: OXALIPLATIN 160 MG in DEXTROSE 5%-WATER - 500 ML IV ONE (10:30)
[2018-04-01] MEDS ORDERED: WATER IVPB ONE (10:30)
[2018-04-01] MEDS ORDERED: DEXTROSE 5% IVPB ONE (10:30)
[2018-04-01 10:32] LABS: BASO % 1.5 % (0-2.0); EOS % 2.9 % (0-4.5); HEMATOCRIT 35.4 % (32.4-45.2); HEMOGLOBIN 11.5 GM/dL (10.7-15.3); LYMPH % 26.3 % (8-40); MCH 26.7 pg (25.7-33.7); MCHC 32.6 g/dl (32.0-36.0); MEAN CELL VOLUME 81.9 fl (80-96); MEAN PLT VOLUME 8.5 fl (7.5-11.1); MONO % 8.4 % (3.8-10.2); NEUT % 60.9 % (42.8-82.8); PLATELET COUNT 210 K/MM3 (134-434); RBC 4.32 M/mm3 (3.60-5.2); WHITE BLOOD COUNT 2.9 K/mm3 (4.0-10.0)
[2018-04-01 11:42] LABS: ALBUMIN 3.8 g/dl (3.4-5.0); ALK PHOS 56 U/L (45-117); BILIRUBIN,DIRECT < 0.2 mg/dL (0.0-0.2); BILIRUBIN,TOTAL 0.5 mg/dL (0.2-1); MAGNESIUM 2.2 mg/dL (1.8-2.4); SGOT/AST 44 U/L (15-37); SGPT/ALT 66 U/L (13-61); TOT PROT 7.8 g/dl (6.4-8.2)
[2018-04-01 11:43] LABS: ALBUMIN 3.7 g/dl (3.4-5.0); ALK PHOS 55 U/L (45-117); ANION GAP 6 MMOL/L (8-16); BILIRUBIN,TOTAL 0.3 mg/dL (0.2-1); BLOOD UREA NITROGEN 7 mg/dL (7-18); CALCIUM 9.6 mg/dL (8.5-10.1); CHLORIDE 108 mmol/L (98-107); CO2 25 mmol/L (21-32); CREATININE 0.6 mg/dL (0.55-1.3); GLUCOSE,RANDOM 78 mg/dL (74-106); POTASSIUM 4.2 mmol/L (3.5-5.1); SGOT/AST 45 U/L (15-37); SGPT/ALT 66 U/L (13-61); SODIUM 139 mmol/L (136-145); TOT PROT 7.8 g/dl (6.4-8.2)
[2018-04-01] MEDS ORDERED: FLUOROURACIL 500 MG/10 ML VIAL IVPUSH ONE (12:30)
[2018-04-01] MEDS ORDERED: FLUOROURACIL 4,550 MG in SODIUM CHLORIDE 1 ML CP ONE (12:45)
[2018-04-01 16:56] VITALS: TEMP 97.5
[2018-04-01 16:58] VITALS: BP 128/80; PULSE 88
== END 2018-04-01 15:50 | disposition home or self-care (01) ==
LOC: JONCCHEMO 07:52 → J7W 12:39 → JONCCHEMO 15:50
PROVIDERS: ATTEND Internal Medicine Hematology & Oncology
DX: Z51.11 Encounter for antineoplastic chemotherapy (principal); C18.7 Malignant neoplasm of sigmoid colon
CPT/HCPCS: 36415; 80053; 80076; 83735; 84703; 85025; 96366; 96367; 96375; 96409; 96411; 96413; 96415; 96417; G0498; J1100; J2469; J9190; J9263

== ENCOUNTER 2018-04-03 07:37 | Day surgery (SDC) | payer OTHER ==
[2018-04-03 17:45] VITALS: BP 123/70; PULSE 72
[2018-04-03 17:50] VITALS: TEMP 98.1
[2018-04-03] MEDS ORDERED: PORTA CATH FLUSH 10 ML IVPUSH ONE (17:50)
== END 2018-04-03 15:15 | disposition home or self-care (01) ==
LOC: JONCCHEMO 07:37 → J7W 14:59 → JONCCHEMO 15:15
PROVIDERS: ATTEND Internal Medicine Hematology & Oncology
PROC: 0JPVXVZ Removal of Infusion Pump from Upper Extremity Subcutaneous Tissue and Fascia, External Approach (ICD-10-PCS; principal; 2018-04-03)
DX: Z53.8 Procedure and treatment not carried out for other reasons (principal)

== ENCOUNTER 2018-04-04 07:27 | Day surgery (SDC) | payer OTHER ==
[2018-04-04] MEDS ORDERED: TBO-FILGRASTIM 480 MCG/0.8 ML DISP.SYRIN SQ ONE (10:00)
[2018-04-04 13:53] VITALS: BP 113/70; PULSE 75; TEMP 98.6
== END 2018-04-04 12:30 | disposition home or self-care (01) ==
LOC: JONCCHEMO 07:27 → J7W 12:19 → JONCCHEMO 12:30
PROVIDERS: ATTEND Internal Medicine Hematology & Oncology
PROC: 3E013GC Introduction of Other Therapeutic Substance into Subcutaneous Tissue, Percutaneous Approach (ICD-10-PCS; principal; 2018-04-04)
DX: C18.7 Malignant neoplasm of sigmoid colon (principal); Z76.89 Persons encountering health services in other specified circumstances
CPT/HCPCS: 96372; J1447

== ENCOUNTER 2018-04-29 07:16 | Day surgery (SDC) | payer OTHER ==
--- NOTE | 2018-04-19 14:04 | PN ---
Progress Note (short form) - Note Progress Note: called patient-- she reports flu like symptoms. No fever.Instructed her to come to the ER. Called her motherasweell and askesd them to come to ER as she is wheezing
[2018-04-29] MEDS ORDERED: PALONOSETRON HCL 0.25 MG/5 ML VIAL IVPUSH ONE (08:00)
[2018-04-29] MEDS ORDERED: DEXAMETHASONE INJECTION 20 MG in SODIUM CHLORIDE 50 ML IVPB ONE (08:00)
[2018-04-29] MEDS ORDERED: WATER IVPB ONE (08:30)
[2018-04-29] MEDS ORDERED: OXALIPLATIN 160 MG in DEXTROSE 5%-WATER - 500 ML IV ONE (08:30)
[2018-04-29] MEDS ORDERED: DEXTROSE 5% IVPB ONE (08:30)
[2018-04-29] MEDS ORDERED: LEUCOVORIN IVPB ONE (08:30)
[2018-04-29 08:56] VITALS: TEMP 97.9
[2018-04-29 09:39] LABS: BASO % 1.1 % (0-2.0); EOS % 2.8 % (0-4.5); HEMATOCRIT 33.9 % (32.4-45.2); HEMOGLOBIN 11.7 GM/dL (10.7-15.3); LYMPH % 21.5 % (8-40); MCH 28.1 pg (25.7-33.7); MCHC 34.4 g/dl (32.0-36.0); MEAN CELL VOLUME 81.7 fl (80-96); MEAN PLT VOLUME 8.1 fl (7.5-11.1); MONO % 5.1 % (3.8-10.2); NEUT % 69.5 % (42.8-82.8); PLATELET COUNT 242 K/MM3 (134-434); RBC 4.14 M/mm3 (3.60-5.2); RDW 18.3 % (11.6-15.6); WHITE BLOOD COUNT 6.1 K/mm3 (4.0-10.0)
[2018-04-29 09:59] LABS: ALBUMIN 3.9 g/dl (3.4-5.0); ALK PHOS 57 U/L (45-117); ANION GAP 10 MMOL/L (8-16); BILIRUBIN,DIRECT 0.1 mg/dL (0.0-0.2); BILIRUBIN,TOTAL 0.4 mg/dL (0.2-1); BLOOD UREA NITROGEN 11 mg/dL (7-18); CALCIUM 8.8 mg/dL (8.5-10.1); CHLORIDE 106 mmol/L (98-107); CO2 25 mmol/L (21-32); CREATININE 0.5 mg/dL (0.55-1.3); GLUCOSE,RANDOM 78 mg/dL (74-106); MAGNESIUM 2.2 mg/dL (1.8-2.4); POTASSIUM 3.7 mmol/L (3.5-5.1); SGOT/AST 34 U/L (15-37); SGPT/ALT 41 U/L (13-61); SODIUM 141 mmol/L (136-145); TOT PROT 7.9 g/dl (6.4-8.2)
[2018-04-29] MEDS ORDERED: FLUOROURACIL 2,500 MG/50 ML VIAL IVPUSH ONE (10:30)
[2018-04-29] MEDS ORDERED: FLUOROURACIL 4,550 MG in SODIUM CHLORIDE 1 ML CP ONE (10:45)
[2018-04-29 16:09] VITALS: BP 122/76; PULSE 87
== END 2018-04-29 13:00 | disposition home or self-care (01) ==
LOC: JONCCHEMO 07:16 → J7W 09:57 → JONCCHEMO 13:00
PROVIDERS: ATTEND Internal Medicine Hematology & Oncology
DX: Z51.11 Encounter for antineoplastic chemotherapy (principal); C18.7 Malignant neoplasm of sigmoid colon
CPT/HCPCS: 36415; 80053; 80076; 82378; 83735; 84703; 85025; 96366; 96367; 96375; 96413; 96415; 96417; G0498; J1100; J2469; J9263

== ENCOUNTER 2018-05-01 07:19 | Day surgery (SDC) | payer OTHER ==
[2018-05-01 14:50] VITALS: BP 95/55; PULSE 67; TEMP 98.2
[2018-05-01] MEDS ORDERED: PORTA CATH FLUSH 10 ML IVPUSH ONE (14:55)
== END 2018-05-01 11:10 | disposition home or self-care (01) ==
LOC: JONCCHEMO 07:19 → J7W 10:10 → JONCCHEMO 11:10
PROVIDERS: ATTEND Internal Medicine Hematology & Oncology
PROC: 3E013GC Introduction of Other Therapeutic Substance into Subcutaneous Tissue, Percutaneous Approach (ICD-10-PCS; principal; 2018-05-01)
DX: Z53.8 Procedure and treatment not carried out for other reasons (principal)

== ENCOUNTER 2018-05-20 07:22 | Day surgery (SDC) | payer OTHER ==
[2018-05-20 09:37] VITALS: TEMP 97.6
[2018-05-20] MEDS ORDERED: DEXAMETHASONE INJECTION 20 MG in SODIUM CHLORIDE 50 ML IVPB ONE (10:00)
[2018-05-20] MEDS ORDERED: PALONOSETRON HCL 0.25 MG/5 ML VIAL IVPUSH ONE (10:00)
[2018-05-20 10:14] LABS: BASO % 1.2 % (0-2.0); EOS % 5.3 % (0-4.5); HEMATOCRIT 30.5 % (32.4-45.2); HEMOGLOBIN 10.6 GM/dL (10.7-15.3); LYMPH % 24.8 % (8-40); MCH 27.8 pg (25.7-33.7); MCHC 34.8 g/dl (32.0-36.0); MEAN CELL VOLUME 80.1 fl (80-96); MEAN PLT VOLUME 8.2 fl (7.5-11.1); MONO % 12.2 % (3.8-10.2); NEUT % 56.5 % (42.8-82.8); PLATELET COUNT 210 K/MM3 (134-434); RBC 3.82 M/mm3 (3.60-5.2); RDW 17.3 % (11.6-15.6); WHITE BLOOD COUNT 2.5 K/mm3 (4.0-10.0)
[2018-05-20] MEDS ORDERED: DEXTROSE 5% IVPB ONE (10:30)
[2018-05-20] MEDS ORDERED: WATER IVPB ONE (10:30)
[2018-05-20] MEDS ORDERED: LEUCOVORIN IVPB ONE (10:30)
[2018-05-20] MEDS ORDERED: OXALIPLATIN 160 MG in DEXTROSE 5%-WATER - 500 ML IV ONE (10:30)
[2018-05-20 10:57] LABS: ALBUMIN 3.8 g/dl (3.4-5.0); ALK PHOS 68 U/L (45-117); ANION GAP 10 MMOL/L (8-16); BILIRUBIN,DIRECT 0.1 mg/dL (0.0-0.2); BILIRUBIN,TOTAL 0.4 mg/dL (0.2-1); BLOOD UREA NITROGEN 9 mg/dL (7-18); CALCIUM 8.8 mg/dL (8.5-10.1); CHLORIDE 105 mmol/L (98-107); CO2 23 mmol/L (21-32); CREATININE 0.7 mg/dL (0.55-1.3); GLUCOSE,RANDOM 80 mg/dL (74-106); MAGNESIUM 2.3 mg/dL (1.8-2.4); POTASSIUM 3.9 mmol/L (3.5-5.1); SGOT/AST 32 U/L (15-37); SGPT/ALT 32 U/L (13-61); SODIUM 138 mmol/L (136-145); TOT PROT 7.9 g/dl (6.4-8.2)
[2018-05-20] MEDS ORDERED: valACYclovir HCL 500 MG TABLET (FP) PO ONE (11:15)
[2018-05-20] MEDS ORDERED: FLUOROURACIL 500 MG/10 ML VIAL IVPUSH ONE (12:30)
[2018-05-20] MEDS ORDERED: FLUOROURACIL 4,550 MG in SODIUM CHLORIDE 1 ML CP ONE (12:45)
[2018-05-20] MEDS ORDERED: DEXAMETHASONE IVPUSH ONE ×2 (14:00→14:56)
[2018-05-20] MEDS ORDERED: SODIUM CHLORIDE IVPUSH ONE ×2 (14:00→14:56)
[2018-05-20] MEDS ORDERED: DIPHENHYDRAMINE IVPUSH ONE ×2 (14:00→14:56)
[2018-05-20] MEDS ORDERED: DEXAMETHASONE SOD PHOSPHATE 10 MG/1 ML VIAL ONE (14:03)
[2018-05-20] MEDS ORDERED: SODIUM CHLORIDE IVPB ONE (14:45)
[2018-05-20] MEDS ORDERED: DEXAMETHASONE IVPB ONE (14:45)
[2018-05-20] MEDS ORDERED: DIPHENHYDRAMINE IVPB ONE (14:45)
[2018-05-20] MEDS ORDERED: DEXAMETHASONE SOD PHOSPHATE 20 MG/5 ML VIAL IVPB ONE (14:47)
[2018-05-20] MEDS ORDERED: DEXAMETHASONE SOD PHOSPHATE 10 MG/1 ML VIAL IVPUSH ONE (15:00)
[2018-05-20] MEDS ORDERED: ACETAMINOPHEN 325 MG TABLET (FP) PO ONE (15:00)
[2018-05-20 19:21] VITALS: BP 115/69; PULSE 109
== END 2018-05-20 19:23 | disposition home or self-care (01) ==
LOC: JONCCHEMO 07:22 → J7W 10:55 → JONCCHEMO 19:23
PROVIDERS: ATTEND Internal Medicine Hematology & Oncology
PROC: 3E04305 Introduction of Other Antineoplastic into Central Vein, Percutaneous Approach (ICD-10-PCS; principal; 2018-05-20)
PROC: 3E04305 Introduction of Other Antineoplastic into Central Vein, Percutaneous Approach (ICD-10-PCS; 2018-05-20)
PROC: 3E043GC Introduction of Other Therapeutic Substance into Central Vein, Percutaneous Approach (ICD-10-PCS; 2018-05-20)
DX: Z51.11 Encounter for antineoplastic chemotherapy (principal); C18.7 Malignant neoplasm of sigmoid colon
CPT/HCPCS: 36415; 80053; 80076; 83735; 84703; 85025; 96366; 96367; 96375; 96413; 96415; 96417; G0498; J1100; J2469; J9190; J9263

== ENCOUNTER 2018-05-22 07:42 | Day surgery (SDC) | payer OTHER ==
[2018-05-22 17:06] VITALS: BP 103/51; PULSE 75; TEMP 98.1
[2018-05-22] MEDS ORDERED: PORTA CATH FLUSH 10 ML IVPUSH ONE (17:06)
== END 2018-05-22 15:30 | disposition home or self-care (01) ==
LOC: JONCCHEMO 07:42 → J7W 14:00 → JONCCHEMO 15:30
PROVIDERS: ATTEND Internal Medicine Hematology & Oncology
PROC: 0JPVXVZ Removal of Infusion Pump from Upper Extremity Subcutaneous Tissue and Fascia, External Approach (ICD-10-PCS; principal; 2018-05-22)
DX: Z53.8 Procedure and treatment not carried out for other reasons (principal)

== ENCOUNTER 2018-05-23 07:11 | Day surgery (SDC) | payer OTHER ==
[2018-05-23] MEDS ORDERED: TBO-FILGRASTIM 480 MCG/0.8 ML DISP.SYRIN SQ ONE (13:30)
[2018-05-23 16:08] VITALS: BP 109/61; PULSE 76; TEMP 98.3
== END 2018-05-23 13:30 | disposition home or self-care (01) ==
LOC: JONCCHEMO 07:11 → J7W 12:31 → JONCCHEMO 13:30
PROVIDERS: ATTEND Internal Medicine Hematology & Oncology
PROC: 3E013GC Introduction of Other Therapeutic Substance into Subcutaneous Tissue, Percutaneous Approach (ICD-10-PCS; principal; 2018-05-23)
DX: C18.7 Malignant neoplasm of sigmoid colon (principal); Z76.89 Persons encountering health services in other specified circumstances
CPT/HCPCS: 96372; J1447

== ENCOUNTER 2018-06-10 06:58 | Day surgery (SDC) | payer OTHER ==
[2018-06-10] MEDS ORDERED: DEXAMETHASONE SODIUM PHOSPHATE 20 MG in SODIUM CHLORIDE 50 ML IVPB ONE (10:00)
[2018-06-10] MEDS ORDERED: PALONOSETRON HCL 0.25 MG/5 ML VIAL IVPUSH ONE (10:00)
[2018-06-10] MEDS ORDERED: WATER IVPB ONE (10:30)
[2018-06-10] MEDS ORDERED: OXALIPLATIN 160 MG in DEXTROSE 5%-WATER - 500 ML IV ONE (10:30)
[2018-06-10] MEDS ORDERED: LEUCOVORIN IVPB ONE (10:30)
[2018-06-10] MEDS ORDERED: DEXTROSE 5% IVPB ONE (10:30)
[2018-06-10 10:44] LABS: BASO % 1.9 % (0-2.0); EOS % 4.9 % (0-4.5); HEMATOCRIT 28.3 % (32.4-45.2); HEMOGLOBIN 9.7 GM/dL (10.7-15.3); LYMPH % 47.7 % (8-40); MCH 27.2 pg (25.7-33.7); MCHC 34.2 g/dl (32.0-36.0); MEAN CELL VOLUME 79.5 fl (80-96); MEAN PLT VOLUME 8.2 fl (7.5-11.1); MONO % 19.2 % (3.8-10.2); NEUT % 26.3 % (42.8-82.8); PLATELET COUNT 185 K/MM3 (134-434); RBC 3.56 M/mm3 (3.60-5.2)
[2018-06-10 11:12] LABS: ALBUMIN 3.4 g/dl (3.4-5.0); BILIRUBIN,DIRECT 0.1 mg/dL (0.0-0.2); BILIRUBIN,TOTAL 0.3 mg/dL (0.2-1); TOT PROT 7.1 g/dl (6.4-8.2)
[2018-06-10 11:13] LABS: ALBUMIN 3.5 g/dl (3.4-5.0); ALK PHOS 63 U/L (45-117); ANION GAP 8 MMOL/L (8-16); BILIRUBIN,TOTAL 0.4 mg/dL (0.2-1); BLOOD UREA NITROGEN 8 mg/dL (7-18); CALCIUM 8.3 mg/dL (8.5-10.1); CHLORIDE 108 mmol/L (98-107); CO2 24 mmol/L (21-32); CREATININE 0.6 mg/dL (0.55-1.3); GLUCOSE,RANDOM 99 mg/dL (74-106); POTASSIUM 3.5 mmol/L (3.5-5.1); SGOT/AST 25 U/L (15-37); SGPT/ALT 24 U/L (13-61); SODIUM 140 mmol/L (136-145); TOT PROT 7.1 g/dl (6.4-8.2)
[2018-06-10] MEDS ORDERED: DEXAMETHASONE SOD PHOSPHATE 10 MG/1 ML VIAL ONE (11:52)
[2018-06-10] MEDS ORDERED: DEXAMETHASONE SOD PHOSPHATE 10 MG/1 ML VIAL IVPB ONE (12:00)
[2018-06-10] MEDS ORDERED: FLUOROURACIL 500 MG/10 ML VIAL IVPUSH ONE (12:30)
[2018-06-10] MEDS ORDERED: FLUOROURACIL 4,550 MG in SODIUM CHLORIDE 1 ML CP ONE (12:45)
[2018-06-10 14:12] VITALS: TEMP 97.6
[2018-06-10 17:01] VITALS: BP 105/60; PULSE 84
== END 2018-06-10 17:01 | disposition home or self-care (01) ==
LOC: JONCCHEMO 06:58 → J7W 11:20 → JONCCHEMO 17:01
PROVIDERS: ATTEND Internal Medicine Hematology & Oncology
PROC: 3E04305 Introduction of Other Antineoplastic into Central Vein, Percutaneous Approach (ICD-10-PCS; principal; 2018-06-10)
PROC: 3E043GC Introduction of Other Therapeutic Substance into Central Vein, Percutaneous Approach (ICD-10-PCS; 2018-06-10)
PROC: 3E04305 Introduction of Other Antineoplastic into Central Vein, Percutaneous Approach (ICD-10-PCS; 2018-06-10)
DX: Z51.11 Encounter for antineoplastic chemotherapy (principal); C18.7 Malignant neoplasm of sigmoid colon
CPT/HCPCS: 36415; 80053; 80076; 83735; 84702; 84703; 85025; 96361; 96367; 96368; 96375; 96413; 96415; 96417; G0498; J1100; J2469; J9263

== ENCOUNTER 2018-06-12 06:18 | Day surgery (SDC) | payer OTHER ==
[2018-06-12 16:55] VITALS: BP 110/61; PULSE 79; TEMP 98.5
[2018-06-12] MEDS ORDERED: PORTA CATH FLUSH 10 ML IVPUSH ONE (16:55)
== END 2018-06-12 14:40 | disposition home or self-care (01) ==
LOC: JONCCHEMO 06:18
PROVIDERS: ATTEND Internal Medicine Hematology & Oncology
PROC: 2W54XYZ Removal of Other Device on Chest Wall (ICD-10-PCS; principal; 2018-06-12)
DX: Z53.8 Procedure and treatment not carried out for other reasons (principal)

== ENCOUNTER → 2019-01-15 | Day surgery (SDC) | payer OTHER | LOC: JRADIR 09:03 ==

== ENCOUNTER 2019-05-01 09:20 | Day surgery (SDC) | payer OTHER ==
[2019-04-30 16:56] VITALS: BMI 23.7
[2019-05-01 14:27] VITALS: BP 106/50; PULSE 62; TEMP 97.5
== END 2019-05-01 14:00 | disposition home or self-care (01) ==
LOC: JASU-ENDO 09:20
PROVIDERS: ATTEND Internal Medicine Gastroenterology
PROC: 0DJD8ZZ Inspection of Lower Intestinal Tract, Via Natural or Artificial Opening Endoscopic (ICD-10-PCS; principal; 2019-05-01 11:00)
DX: Z12.11 Encounter for screening for malignant neoplasm of colon (principal); Z85.038 Personal history of other malignant neoplasm of large intestine; K64.8 Other hemorrhoids; Z98.0 Intestinal bypass and anastomosis status
CPT/HCPCS: 81025

== ENCOUNTER 2019-08-14 08:20 | Day surgery (SDC) | payer OTHER ==
[2019-08-13 09:09] VITALS: BMI 23.7
[2019-08-14 10:10] VITALS: TEMP 97.8
[2019-08-14 10:40] VITALS: BP 118/63; PULSE 69
--- NOTE | 2019-08-15 16:12 | PATH ---
Surgical Pathology Report Patient Name: GUERO BRASWELL [facility]. Rec. #: [id number] /Age/Gender: 1985 (Age: 34) / F Account: [id number] Location: [facility]-ENDOSCOPY Taken: 08/14/2019 Received: 08/14/2019 Reported: 08/15/2019 Physicians: Lonnie Luke D.O. Specimen(s) Received A: ANTRUM AND BODY B: GE JUNCTION Clinical History Anemia Postoperative diagnosis: Gastritis Final Diagnosis A. STOMACH, ANTRUM AND BODY, BIOPSY: GASTRIC OXYNTIC MUCOSA WITH MILD TO MODERATE CHRONIC GASTRITIS. IMMUNOHISTOCHEMICAL STAIN FOR H. PYLORI IS NEGATIVE. B. GE JUNCTION, BIOPSY: SQUAMOCOLUMNAR MUCOSA WITH MILD CHRONIC INFLAMMATION AND CHANGES OF MILD REFLUX ESOPHAGITIS. NO INTESTINAL METAPLASIA OR DYSPLASIA IDENTIFIED. Positive and negative controls (internal if applicable) show appropriate results. Electronically Signed Fiona Kimball M.D. Gross Description A. Received in formalin, labeled "antrum and body biopsy" are 3 graff, irregular portions of soft tissue ranging from 0.2-0.3 cm. in greatest dimension. The specimens are submitted in toto in one cassette. B. Received in formalin, labeled "GE junction biopsy" are 2 graff, irregular portions of soft tissue measuring 0.2 and 0.3 cm. in greatest dimension. The specimens are submitted in toto in one cassette. 08/14/2019 saudi08/14/2019
== END 2019-08-14 10:47 | disposition home or self-care (01) ==
LOC: JASU-ENDO 08:20
PROVIDERS: ATTEND Internal Medicine Gastroenterology
PROC: 0DB78ZX Excision of Stomach, Pylorus, Via Natural or Artificial Opening Endoscopic, Diagnostic (ICD-10-PCS; 2019-08-14)
PROC: 0DB68ZX Excision of Stomach, Via Natural or Artificial Opening Endoscopic, Diagnostic (ICD-10-PCS; 2019-08-14)
PROC: 0DB58ZX Excision of Esophagus, Via Natural or Artificial Opening Endoscopic, Diagnostic (ICD-10-PCS; principal; 2019-08-14 10:00)
DX: D64.9 Anemia, unspecified (principal); K29.50 Unspecified chronic gastritis without bleeding; K21.0 Gastro-esophageal reflux disease with esophagitis
CPT/HCPCS: 81025; 88305-TC; 88342-TC

== ENCOUNTER 2020-01-07 07:14 | Day surgery (SDC) | payer OTHER ==
[2020-01-07 11:58] LABS: BASO % 0.6 % (0-2.0); HEMATOCRIT 34.7 % (32.4-45.2); HEMOGLOBIN 11.2 GM/dL (10.7-15.3); LYMPH % 19.7 % (8-40); MCH 24.8 pg (25.7-33.7); MCHC 32.2 g/dl (32.0-36.0); MEAN CELL VOLUME 76.9 fl (80-96); MEAN PLT VOLUME 8.5 fl (7.5-11.1); MONO % 5.8 % (3.8-10.2); NEUT % 69.9 % (42.8-82.8); PLATELET COUNT 242 K/MM3 (134-434); RBC 4.51 M/mm3 (3.60-5.2); RDW 15.5 % (11.6-15.6); WHITE BLOOD COUNT 6.2 K/mm3 (4.0-10.0)
[2020-01-07] MEDS ORDERED: ACETAMINOPHEN 325 MG TABLET (FP) PO ONE (12:00)
[2020-01-07] MEDS ORDERED: DIPHENHYDRAMINE 25 MG in SODIUM CHLORIDE 50 ML IVPB ONE (12:00)
[2020-01-07 12:26] LABS: ALBUMIN 3.8 g/dl (3.4-5.0); BILIRUBIN,DIRECT 0.1 mg/dL (0.0-0.2); BILIRUBIN,TOTAL 0.5 mg/dL (0.2-1); BLOOD UREA NITROGEN 10.9 mg/dL (7-18); CALCIUM 9.4 mg/dL (8.5-10.1); CREATININE 0.8 mg/dL (0.55-1.3); MAGNESIUM 2.2 mg/dL (1.8-2.4); PHOSPHOROUS 3.6 mg/dL (2.5-4.9); POTASSIUM 3.9 mmol/L (3.5-5.1)
[2020-01-07] MEDS ORDERED: FERRIC CARBOXYMALTOSE 750 MG in SODIUM CHLORIDE 250 ML IVPB ONE (12:30)
[2020-01-07 15:40] VITALS: TEMP 98.4
[2020-01-07 16:00] VITALS: BP 108/70; PULSE 65
== END 2020-01-07 13:30 | disposition home or self-care (01) ==
LOC: JONCCHEMO 07:14
PROVIDERS: ATTEND Internal Medicine Hematology & Oncology
PROC: 3E033GC Introduction of Other Therapeutic Substance into Peripheral Vein, Percutaneous Approach (ICD-10-PCS; principal; 2020-01-07)
DX: D50.9 Iron deficiency anemia, unspecified (principal)
CPT/HCPCS: 36415; 80048; 80076; 83735; 84100; 84703; 85025; 96365; 96375; J1439

== ENCOUNTER 2020-01-14 07:19 | Day surgery (SDC) | payer OTHER ==
[2020-01-14] MEDS ORDERED: ACETAMINOPHEN 325 MG TABLET (FP) PO ONE (10:30)
[2020-01-14] MEDS ORDERED: DIPHENHYDRAMINE 25 MG in SODIUM CHLORIDE 50 ML IVPB ONE (10:30)
[2020-01-14] MEDS ORDERED: FERRIC CARBOXYMALTOSE 750 MG in SODIUM CHLORIDE 250 ML IVPB ONE (11:00)
[2020-01-14 16:03] VITALS: BP 114/61; PULSE 68; TEMP 98.4
[2020-01-14 16:11] LABS: BASO % 0.9 % (0-2.0); EOS % 4.4 % (0-4.5); HEMATOCRIT 37.5 % (32.4-45.2); HEMOGLOBIN 12.1 GM/dL (10.7-15.3); LYMPH % 25.9 % (8-40); MCH 25.3 pg (25.7-33.7); MCHC 32.2 g/dl (32.0-36.0); MEAN CELL VOLUME 78.5 fl (80-96); MEAN PLT VOLUME 9.4 fl (7.5-11.1); MONO % 6.4 % (3.8-10.2); NEUT % 62.4 % (42.8-82.8); PLATELET COUNT 288 K/MM3 (134-434); RBC 4.78 M/mm3 (3.60-5.2); RDW 16.5 % (11.6-15.6); WHITE BLOOD COUNT 5.7 K/mm3 (4.0-10.0)
[2020-01-14 16:33] LABS: ALBUMIN 4.1 g/dl (3.4-5.0); ALK PHOS 44 U/L (45-117); ANION GAP 7 MMOL/L (8-16); BILIRUBIN,DIRECT < 0.1 mg/dL (0.0-0.2); BILIRUBIN,TOTAL 0.6 mg/dL (0.2-1); BLOOD UREA NITROGEN 13.6 mg/dL (7-18); CALCIUM 8.9 mg/dL (8.5-10.1); CHLORIDE 106 mmol/L (98-107); CO2 23 mmol/L (21-32); CREATININE 0.7 mg/dL (0.55-1.3); GLUCOSE,RANDOM 66 mg/dL (74-106); PHOSPHOROUS 2.2 mg/dL (2.5-4.9); POTASSIUM 5.1 mmol/L (3.5-5.1); SGOT/AST 36 U/L (15-37); SGPT/ALT 18 U/L (13-61); SODIUM 136 mmol/L (136-145); TOT PROT 8.8 g/dl (6.4-8.2)
== END 2020-01-14 14:40 | disposition home or self-care (01) ==
LOC: JONCNONCHE 07:19 → JONCCHEMO 07:19 → JONCNONCHE 14:05
PROVIDERS: ATTEND Internal Medicine Hematology & Oncology
PROC: 3E033GC Introduction of Other Therapeutic Substance into Peripheral Vein, Percutaneous Approach (ICD-10-PCS; principal; 2020-01-14)
DX: D50.9 Iron deficiency anemia, unspecified (principal)
CPT/HCPCS: 36415; 80048; 80076; 84100; 85025; 96365; 96375; J1439

== ENCOUNTER 2020-06-08 11:17 | Emergency (ER) | payer OTHER ==
[2020-06-08 11:38] VITALS: BMI 25.4
[2020-06-08] MEDS ORDERED: ONDANSETRON 4 MG/2 ML VIAL IVPUSH ONE (12:29)
[2020-06-08] MEDS ORDERED: SODIUM CHLORIDE 0.9% 500 ML INFUS.BAG IV ONE (12:29)
[2020-06-08] MEDS ORDERED: morphine CARPU-JECT 4 MG/1 ML DISP.SYRIN IVPUSH ONE (12:30)
[2020-06-08] MEDS ORDERED: ONDANSETRON 4 MG/2 ML VIAL ONE (12:47)
[2020-06-08] MEDS ORDERED: morphine SULFATE 4 MG/ML VIAL ONE (12:47)
[2020-06-08 14:07] VITALS: BP 112/65; PULSE 76; TEMP 98.3
== END 2020-06-08 14:07 | disposition home or self-care (01) ==
LOC: JER 11:17
PROC: 3E033NZ Introduction of Analgesics, Hypnotics, Sedatives into Peripheral Vein, Percutaneous Approach (ICD-10-PCS; principal; 2020-06-08)
PROC: 3E033GC Introduction of Other Therapeutic Substance into Peripheral Vein, Percutaneous Approach (ICD-10-PCS; 2020-06-08)
DX: L03.818 Cellulitis of other sites (principal)
CPT/HCPCS: 99284-25

== ENCOUNTER 2020-09-28 04:23 | Day surgery (SDC) | payer OTHER ==
[2020-09-24 15:07] VITALS: BMI 25.7
[2020-09-28 12:20] VITALS: BP 115/72; PULSE 78; TEMP 97.7
== END 2020-09-28 12:21 | disposition home or self-care (01) ==
LOC: JASU-ENDO 04:23
PROVIDERS: ATTEND Internal Medicine Gastroenterology
PROC: 3E0H8GC Introduction of Other Therapeutic Substance into Lower GI, Via Natural or Artificial Opening Endoscopic (ICD-10-PCS; 2020-09-28)
PROC: 0DBL8ZX Excision of Transverse Colon, Via Natural or Artificial Opening Endoscopic, Diagnostic (ICD-10-PCS; principal; 2020-09-28 10:55)
DX: K63.5 Polyp of colon (principal); Z85.038 Personal history of other malignant neoplasm of large intestine; R19.4 Change in bowel habit; Z98.0 Intestinal bypass and anastomosis status
CPT/HCPCS: 81025; 88305-TC

== ENCOUNTER → 2021-03-31 | Day surgery (SDC) | payer OTHER | END | disposition home or self-care (01) | LOC: FMAMMOTONE 11:11 | PROVIDERS: ATTEND Internal Medicine Hematology & Oncology | PROC: 0HBV3ZX Excision of Bilateral Breast, Percutaneous Approach, Diagnostic (ICD-10-PCS; principal; 2021-03-31) | DX: D24.1 Benign neoplasm of right breast (principal); D24.2 Benign neoplasm of left breast; N64.89 Other specified disorders of breast; N63.22 Unspecified lump in the left breast, upper inner quadrant; R92.0 Mammographic microcalcification found on diagnostic imaging of breast | CPT/HCPCS: 19081; 19083; 76098-TC-FY; 87899; 88305-TC; A4648 ==

== ENCOUNTER 2021-09-13 08:39 | Day surgery (SDC) | payer OTHER ==
[2021-09-13] MEDS ORDERED: IRON SUCROSE INJECTION 200 MG in SODIUM CHLORIDE 100 ML IVPB ONE (10:00)
[2021-09-13 17:33] VITALS: BP 115/68; PULSE 93; TEMP 97.4
== END 2021-09-13 13:45 | disposition home or self-care (01) ==
LOC: JONCNONCHE 08:39
PROVIDERS: ATTEND Internal Medicine Hematology & Oncology
PROC: 3E033GC Introduction of Other Therapeutic Substance into Peripheral Vein, Percutaneous Approach (ICD-10-PCS; principal; 2021-09-13)
DX: D50.9 Iron deficiency anemia, unspecified (principal)
CPT/HCPCS: 96365; J1756

== ENCOUNTER 2021-09-15 07:26 | Day surgery (SDC) | payer OTHER ==
[2021-09-15] MEDS ORDERED: IRON SUCROSE INJECTION 200 MG in SODIUM CHLORIDE 100 ML IVPB ONE (09:00)
[2021-09-15 17:24] VITALS: BP 119/61; PULSE 94; TEMP 98.2
== END 2021-09-15 13:00 | disposition home or self-care (01) ==
LOC: JONCNONCHE 07:26
PROVIDERS: ATTEND Internal Medicine Hematology & Oncology
PROC: 3E033GC Introduction of Other Therapeutic Substance into Peripheral Vein, Percutaneous Approach (ICD-10-PCS; principal; 2021-09-15)
DX: O99.012 Anemia complicating pregnancy, second trimester (principal); D50.0 Iron deficiency anemia secondary to blood loss (chronic); O9A.112 Malignant neoplasm complicating pregnancy, second trimester; C18.7 Malignant neoplasm of sigmoid colon; Z3A.00 Weeks of gestation of pregnancy not specified
CPT/HCPCS: 96365; J1756

== ENCOUNTER 2021-09-20 08:08 | Day surgery (SDC) | payer OTHER ==
[2021-09-20] MEDS ORDERED: IRON SUCROSE INJECTION 200 MG in SODIUM CHLORIDE 100 ML IVPB ONE (10:00)
[2021-09-20 17:46] VITALS: TEMP 98.1
[2021-09-20 17:51] VITALS: BP 104/61; PULSE 93
== END 2021-09-20 16:20 | disposition home or self-care (01) ==
LOC: JONCNONCHE 08:08
PROVIDERS: ATTEND Internal Medicine Hematology & Oncology
PROC: 3E033GC Introduction of Other Therapeutic Substance into Peripheral Vein, Percutaneous Approach (ICD-10-PCS; principal; 2021-09-20)
DX: O99.012 Anemia complicating pregnancy, second trimester (principal); D50.9 Iron deficiency anemia, unspecified; Z3A.00 Weeks of gestation of pregnancy not specified
CPT/HCPCS: 96365; J1756

== ENCOUNTER 2021-09-22 07:19 | Day surgery (SDC) | payer OTHER ==
[2021-09-22] MEDS ORDERED: IRON SUCROSE INJECTION 200 MG in SODIUM CHLORIDE 100 ML IVPB ONE (10:00)
[2021-09-22 16:27] VITALS: BP 112/71; PULSE 105; TEMP 98.2
== END 2021-09-22 13:15 | disposition home or self-care (01) ==
LOC: JONCNONCHE 07:19
PROVIDERS: ATTEND Internal Medicine Hematology & Oncology
PROC: 3E033GC Introduction of Other Therapeutic Substance into Peripheral Vein, Percutaneous Approach (ICD-10-PCS; principal; 2021-09-22)
DX: O99.012 Anemia complicating pregnancy, second trimester (principal); D50.9 Iron deficiency anemia, unspecified; Z3A.00 Weeks of gestation of pregnancy not specified
CPT/HCPCS: 96365; J1756

== ENCOUNTER 2021-11-24 16:01 | Inpatient (IN) | payer OTHER ==
[2021-11-24] MEDS ORDERED: SODIUM CHLORIDE 0.9% 500 ML INFUS.BAG IV ONE (16:14)
[2021-11-24] MEDS ORDERED: ONDANSETRON 4 MG/2 ML VIAL IVPB ONE (17:07)
[2021-11-24] MEDS ORDERED: ONDANSETRON 4 MG/2 ML VIAL ONE (17:11)
[2021-11-24 17:25] LABS: BASO % 0.6 % (0-2.0); EOS % 2.5 % (0-4.5); HEMATOCRIT 41.3 % (32.4-45.2); HEMOGLOBIN 13.8 GM/dL (10.7-15.3); MCHC 33.5 g/dl (32.0-36.0); MEAN CELL VOLUME 83.5 fl (80-96); MEAN PLT VOLUME 9.1 fl (7.5-11.1); MONO % 6.8 % (3.8-10.2); NEUT % 72.1 % (42.8-82.8); PLATELET COUNT 296 10^3/uL (134-434); RBC 4.94 M/mm3 (3.60-5.2); RDW 17.2 % (11.6-15.6); WHITE BLOOD COUNT 7.2 K/mm3 (4.0-10.0)
[2021-11-24 17:34] LABS: INR 1.09 (0.83-1.09); PROTHROMBIN TIME (PATIENT) 12.5 SEC (9.7-13.0)
[2021-11-24 17:37] LABS: ACTIVATED PTT 33.8 SECONDS (25.2-36.5)
[2021-11-24 17:38] LABS: CHLORIDE 102 mmol/L (98-107); SODIUM 136 mmol/L (136-145)
[2021-11-24 17:41] LABS: ALBUMIN 3.7 g/dl (3.4-5.0); ANION GAP 12 MMOL/L (8-16); BLOOD UREA NITROGEN 9.5 mg/dL (7-18); CALCIUM 9.7 mg/dL (8.5-10.1); CO2 22 mmol/L (21-32); GLUCOSE,RANDOM 83 mg/dL (74-106)
[2021-11-24 17:44] LABS: CREATININE 0.7 mg/dL (0.55-1.3); SGOT/AST 25 U/L (15-37); SGPT/ALT 24 U/L (13-61)
[2021-11-24 17:46] LABS: BILIRUBIN,TOTAL 0.7 mg/dL (0.2-1)
[2021-11-24 17:47] LABS: ALK PHOS 94 U/L (45-117)
[2021-11-24 19:37] LABS: EPI CELLS 35 /uL (0-25.1); HYALINE CASTS 4 /uL (0-3.1); URINE APPEARANCE CLOUDY; URINE BACTERIA 2057 /uL (0-1359); URINE BILIRUBIN NEGATIVE (NEGATIVE); URINE COLOR YELLOW; URINE GLUCOSE (UA) NEGATIVE (NEGATIVE); URINE KETONE 4+ (NEGATIVE); URINE LEUK ESTERASE 2+ (NEGATIVE); URINE NITRITE NEGATIVE (NEGATIVE); URINE PROTEIN NEGATIVE (NEGATIVE); URINE RBC 4 /uL (0-23.9); URINE WBC 261 /uL (0-25.8)
[2021-11-24 20:43] LABS: COCAINE, UR NEGATIVE (NEGATIVE); URINE AMPHETAMINES NEGATIVE (NEGATIVE)
[2021-11-24 20:44] LABS: METHADONE, UR NEGATIVE (NEGATIVE); OPIATES, URI NEGATIVE (NEGATIVE); PHENCYCLIDINE,URINE NEGATIVE (NEGATIVE); URINE BARBITURATES NEGATIVE (NEGATIVE); URINE BENZODIAZEPINES NEGATIVE (NEGATIVE)
[2021-11-24] MEDS ORDERED: ACETAMINOPHEN 1000 MG/100 ML BAG IVPB PRN (20:50)
[2021-11-24 21:27] LABS: EPI CELLS 29 /uL (0-25.1); HYALINE CASTS 5 /uL (0-3.1); PH,URINE 6.5 (5.0-8.0); URINE APPEARANCE CLEAR; URINE BACTERIA 1737 /uL (0-1359); URINE BILIRUBIN NEGATIVE (NEGATIVE); URINE COLOR YELLOW; URINE GLUCOSE (UA) NEGATIVE (NEGATIVE); URINE KETONE 3+ (NEGATIVE); URINE LEUK ESTERASE 2+ (NEGATIVE); URINE NITRITE NEGATIVE (NEGATIVE); URINE PROTEIN NEGATIVE (NEGATIVE); URINE RBC 8 /uL (0-23.9); URINE WBC 215 /uL (0-25.8)
[2021-11-24] MEDS ORDERED: ACETAMINOPHEN INJECTION 100 ML IVPB ONE (21:59)
[2021-11-24] MEDS ORDERED: PANTOPRAZOLE SODIUM 40 MG VIAL ONE (22:00)
[2021-11-24] MEDS ORDERED: CEFTRIAXONE 1 GM/50 ML BAG ONE (22:00)
[2021-11-24] MEDS: DEXTROSE 5%-NORMAL SALINE 1,000 ML IV SCH (22:45)
[2021-11-24] MEDS: PANTOPRAZOLE SODIUM 40 MG VIAL IVPUSH SCH (22:45)
[2021-11-24] MEDS: CEFTRIAXONE 1 GM in DEXTROSE 5%-WATER - 50 ML IVPB SCH (22:45)
[2021-11-24] MEDS ORDERED: MELATONIN 5 MG TABLETS PO ONE (22:49)
[2021-11-24] MEDS ORDERED: MELATONIN 5 MG TABLETS ONE (23:18)
[2021-11-25] MEDS: DEXTROSE 5%-NORMAL SALINE 1,000 ML IV SCH (03:27)
[2021-11-25] MEDS ORDERED: ONDANSETRON 4 MG/2 ML VIAL IVPUSH ONE (08:45)
[2021-11-25] MEDS ORDERED: cefTRIAXone SODIUM 1 GM VIAL ONE (09:09)
[2021-11-25] MEDS ORDERED: DEXTROSE 5%-WATER - 50 ML IVPB ONE (09:10)
[2021-11-25] MEDS: PANTOPRAZOLE SODIUM 40 MG VIAL IVPUSH SCH (09:22)
[2021-11-25] MEDS: ENOXAPARIN NA (PORCINE) 40 MG/0.4 ML DISP.SYRIN SQ SCH (09:22)
[2021-11-25] MEDS: CEFTRIAXONE 1 GM in DEXTROSE 5%-WATER - 50 ML IVPB SCH (09:23)
[2021-11-25 10:47] LABS: BASO % 1.1 % (0-2.0); EOS % 5.1 % (0-4.5); HEMATOCRIT 36.2 % (32.4-45.2); HEMOGLOBIN 12.3 GM/dL (10.7-15.3); LYMPH % 20.7 % (8-40); MCH 28.3 pg (25.7-33.7); MCHC 33.9 g/dl (32.0-36.0); MEAN CELL VOLUME 83.4 fl (80-96); MEAN PLT VOLUME 8.7 fl (7.5-11.1); MONO % 7.7 % (3.8-10.2); NEUT % 65.4 % (42.8-82.8); PLATELET COUNT 254 10^3/uL (134-434); RBC 4.34 M/mm3 (3.60-5.2); RDW 16.9 % (11.6-15.6); WHITE BLOOD COUNT 4.7 K/mm3 (4.0-10.0)
[2021-11-25] MEDS ORDERED: MAG HYDROX/AL HYDROX/SIMETH 30 ML UNIT-DOSE CUP PO PRN (11:12)
[2021-11-25 11:54] LABS: ALBUMIN 3.3 g/dl (3.4-5.0); BLOOD UREA NITROGEN 7.7 mg/dL (7-18); CALCIUM 9.1 mg/dL (8.5-10.1)
[2021-11-25 11:55] LABS: MAGNESIUM 2.1 mg/dL (1.8-2.4)
[2021-11-25 11:57] LABS: CREATININE 0.7 mg/dL (0.55-1.3); PHOSPHOROUS 3.5 mg/dL (2.5-4.9)
[2021-11-25 12:00] LABS: BILIRUBIN,TOTAL 0.5 mg/dL (0.2-1)
[2021-11-25] MEDS: ONDANSETRON 4 MG/2 ML VIAL IVPUSH PRN (21:23)
[2021-11-25] MEDS: POLYETHYLENE GLYCOL (HEALTHYLAX) 3350 17 GM PACKET PO SCH (21:23)
[2021-11-26] MEDS: ONDANSETRON 4 MG/2 ML VIAL IVPUSH PRN ×2 (08:49→20:56)
[2021-11-26 09:30] LABS: BASO % 1.2 % (0-2.0); EOS % 4.8 % (0-4.5); HEMATOCRIT 38.7 % (32.4-45.2); HEMOGLOBIN 12.8 GM/dL (10.7-15.3); LYMPH % 17.4 % (8-40); MCH 28.1 pg (25.7-33.7); MCHC 33.2 g/dl (32.0-36.0); MEAN CELL VOLUME 84.7 fl (80-96); MEAN PLT VOLUME 8.7 fl (7.5-11.1); MONO % 6.3 % (3.8-10.2); NEUT % 70.3 % (42.8-82.8); PLATELET COUNT 270 10^3/uL (134-434); RBC 4.57 M/mm3 (3.60-5.2)
[2021-11-26] MEDS ORDERED: DEXTROSE 5%-WATER - 50 ML IVPB ONE (09:42)
[2021-11-26] MEDS ORDERED: cefTRIAXone SODIUM 1 GM VIAL ONE (09:42)
[2021-11-26 10:04] LABS: BLOOD UREA NITROGEN 4.9 mg/dL (7-18); CALCIUM 9.2 mg/dL (8.5-10.1)
[2021-11-26 10:08] LABS: CREATININE 0.8 mg/dL (0.55-1.3)
[2021-11-26] MEDS: DEXTROSE 5%-NORMAL SALINE 1,000 ML IV SCH ×2 (10:09→18:43)
[2021-11-26] MEDS: PANTOPRAZOLE 20 MG TABLET PO SCH (10:09)
[2021-11-26] MEDS: CEFTRIAXONE 1 GM in DEXTROSE 5%-WATER - 50 ML IVPB SCH (10:09)
[2021-11-26] MEDS: ENOXAPARIN NA (PORCINE) 40 MG/0.4 ML DISP.SYRIN SQ SCH (10:09)
[2021-11-26] MEDS: POLYETHYLENE GLYCOL (HEALTHYLAX) 3350 17 GM PACKET PO SCH (10:09)
[2021-11-26] MEDS ORDERED: WITCH HAZEL 50% (TUCKS) 40 PAD/JAR PAD TP PRN (13:53)
[2021-11-26] MEDS: ZINC OXIDE 20% TOPICAL OINTMENT 30 GM TUBE TP SCH ×2 (15:19→22:39)
[2021-11-26] MEDS ORDERED: MAG HYDROX/AL HYDROX/SIMETH 30 ML UNIT-DOSE CUP PO PRN (20:43)
[2021-11-26] MEDS: ACETAMINOPHEN 1000 MG/100 ML BAG IVPB PRN (23:07)
[2021-11-27] MEDS: ONDANSETRON 4 MG/2 ML VIAL IVPUSH PRN (09:48)
[2021-11-27] MEDS ORDERED: DEXTROSE 5%-WATER - 50 ML IVPB ONE (10:04)
[2021-11-27] MEDS ORDERED: cefTRIAXone SODIUM 1 GM VIAL ONE (10:04)
[2021-11-27] MEDS: CEFTRIAXONE 1 GM in DEXTROSE 5%-WATER - 50 ML IVPB SCH (10:20)
[2021-11-27] MEDS: PANTOPRAZOLE 20 MG TABLET PO SCH (10:20)
[2021-11-27] MEDS: ENOXAPARIN NA (PORCINE) 40 MG/0.4 ML DISP.SYRIN SQ SCH (10:21)
[2021-11-27] MEDS: ZINC OXIDE 20% TOPICAL OINTMENT 30 GM TUBE TP SCH ×2 (10:21→21:09)
[2021-11-27 12:22] VITALS: BMI 22.0
[2021-11-27] MEDS ORDERED: DOCUSATE SODIUM 100 MG CAPSULE (FP) PO PRN (18:01)
[2021-11-27] MEDS: DEXTROSE 5%-NORMAL SALINE 1,000 ML IV SCH ×2 (18:09→21:09)
[2021-11-27] MEDS: ACETAMINOPHEN 1000 MG/100 ML BAG IVPB PRN (19:20)
[2021-11-27] MEDS: LACTOBACILLUS ACIDOPHILUS 1 TABLET PO SCH (21:08)
[2021-11-27] MEDS: DOCUSATE SODIUM 100 MG CAPSULE (FP) PO SCH (21:10)
[2021-11-27] MEDS ORDERED: POLYETHYLENE GLYCOL (HEALTHYLAX) 3350 17 GM PACKET PO SCH (22:00)
[2021-11-27] MEDS ORDERED: MELATONIN 5 MG TABLETS PO ONE (23:35)
[2021-11-28] MEDS: DEXTROSE 5%-NORMAL SALINE 1,000 ML IV SCH ×2 (06:33→22:02)
[2021-11-28 08:41] LABS: EOS % 7.5 % (0-4.5); HEMATOCRIT 37.1 % (32.4-45.2); HEMOGLOBIN 12.4 GM/dL (10.7-15.3); LYMPH % 25.3 % (8-40); MCH 28.2 pg (25.7-33.7); MCHC 33.4 g/dl (32.0-36.0); MEAN CELL VOLUME 84.3 fl (80-96); MEAN PLT VOLUME 8.7 fl (7.5-11.1); MONO % 7.2 % (3.8-10.2); PLATELET COUNT 256 10^3/uL (134-434); RDW 16.8 % (11.6-15.6)
[2021-11-28 09:31] LABS: ALBUMIN 3.2 g/dl (3.4-5.0); BLOOD UREA NITROGEN 4.7 mg/dL (7-18); CALCIUM 8.7 mg/dL (8.5-10.1)
[2021-11-28 09:33] LABS: CREATININE 0.7 mg/dL (0.55-1.3); PHOSPHOROUS 3.3 mg/dL (2.5-4.9)
[2021-11-28 09:35] LABS: TOT PROT 6.9 g/dl (6.4-8.2)
[2021-11-28 09:36] LABS: BILIRUBIN,TOTAL 0.3 mg/dL (0.2-1)
[2021-11-28] MEDS ORDERED: cefTRIAXone SODIUM 1 GM VIAL ONE (10:07)
[2021-11-28] MEDS ORDERED: DEXTROSE 5%-WATER - 50 ML IVPB ONE (10:08)
[2021-11-28] MEDS: CEFTRIAXONE 1 GM in DEXTROSE 5%-WATER - 50 ML IVPB SCH (10:15)
[2021-11-28] MEDS: LACTOBACILLUS ACIDOPHILUS 1 TABLET PO SCH (10:15)
[2021-11-28] MEDS: ENOXAPARIN NA (PORCINE) 40 MG/0.4 ML DISP.SYRIN SQ SCH (10:15)
[2021-11-28] MEDS: PANTOPRAZOLE 20 MG TABLET PO SCH (10:15)
[2021-11-28] MEDS: ZINC OXIDE 20% TOPICAL OINTMENT 30 GM TUBE TP SCH ×2 (10:16→21:05)
[2021-11-28] MEDS: ONDANSETRON 4 MG/2 ML VIAL IVPUSH PRN (14:49)
[2021-11-28] MEDS: DOCUSATE SODIUM 100 MG CAPSULE (FP) PO SCH ×2 (21:00→21:05)
[2021-11-28] MEDS: POLYETHYLENE GLYCOL (HEALTHYLAX) 3350 17 GM PACKET PO SCH (22:01)
[2021-11-28] MEDS: ACETAMINOPHEN 325 MG TABLET (FP) PO PRN (22:02)
[2021-11-29] MEDS ORDERED: DEXTROSE 5%-WATER - 50 ML IVPB ONE (10:12)
[2021-11-29] MEDS ORDERED: cefTRIAXone SODIUM 1 GM VIAL ONE (10:12)
[2021-11-29] MEDS: PANTOPRAZOLE 20 MG TABLET PO SCH (12:58)
[2021-11-29] MEDS: LACTOBACILLUS ACIDOPHILUS 1 TABLET PO SCH ×2 (12:58→15:10)
[2021-11-29] MEDS: ENOXAPARIN NA (PORCINE) 40 MG/0.4 ML DISP.SYRIN SQ SCH (12:58)
[2021-11-29] MEDS: POLYETHYLENE GLYCOL (HEALTHYLAX) 3350 17 GM PACKET PO SCH ×2 (12:58→15:10)
[2021-11-29] MEDS: CEFTRIAXONE 1 GM in DEXTROSE 5%-WATER - 50 ML IVPB SCH (12:59)
[2021-11-29] MEDS: DOCUSATE SODIUM 100 MG CAPSULE (FP) PO SCH ×2 (15:10→21:21)
[2021-11-29] MEDS: ZINC OXIDE 20% TOPICAL OINTMENT 30 GM TUBE TP SCH (15:37)
[2021-11-29] MEDS: ACETAMINOPHEN 325 MG TABLET (FP) PO PRN (20:39)
[2021-11-29] MEDS ORDERED: ONDANSETRON 4 MG TABLET PO ONE (20:48)
[2021-11-30] MEDS: DEXTROSE 5%-NORMAL SALINE 1,000 ML IV SCH (00:45)
[2021-11-30] MEDS: ZINC OXIDE 20% TOPICAL OINTMENT 30 GM TUBE TP SCH ×2 (00:45→10:09)
[2021-11-30 05:38] VITALS: PULSE 69; TEMP 98.3
[2021-11-30] MEDS ORDERED: IVERMECTIN 3 MG TABLET PO ONE (07:00)
[2021-11-30] MEDS: CEFTRIAXONE 1 GM in DEXTROSE 5%-WATER - 50 ML IVPB SCH (09:59)
[2021-11-30] MEDS: PANTOPRAZOLE 20 MG TABLET PO SCH (10:09)
[2021-11-30] MEDS: ENOXAPARIN NA (PORCINE) 40 MG/0.4 ML DISP.SYRIN SQ SCH (10:09)
[2021-11-30] MEDS: LACTOBACILLUS ACIDOPHILUS 1 TABLET PO SCH (10:09)
[2021-11-30] MEDS: POLYETHYLENE GLYCOL (HEALTHYLAX) 3350 17 GM PACKET PO SCH (10:11)
[2021-11-30 10:12] VITALS: BP 124/71
== END 2021-11-30 12:28 | disposition home or self-care (01) | DRG 561 ==
LOC: JER 16:01 → JERBED 19:13 → J6S 11-25 03:21
PROVIDERS: ADMIT Internal Medicine; ATTEND Internal Medicine
DX: O86.20 Urinary tract infection following delivery, unspecified (principal); G93.41 Metabolic encephalopathy; F41.8 Other specified anxiety disorders; K21.9 Gastro-esophageal reflux disease without esophagitis; K80.20 Calculus of gallbladder without cholecystitis without obstruction; R10.9 Unspecified abdominal pain; R11.2 Nausea with vomiting, unspecified; Z85.038 Personal history of other malignant neoplasm of large intestine
CPT/HCPCS: 0241U-QW; 36415; 70450-TC; 71045-TC-FY; 74176-TC; 76700-TC; 78226-TC; 80048; 80053; 80307; 81003; 82607; 82746; 83735; 84100; 84146; 84443; 84484; 84703; 85025; 85610; 85730; 86682; 86850; 86900; 86901; 87086; 93005; 93010; 99285-25; A9537

== ENCOUNTER 2021-12-05 11:45 | Observation (INO) | payer OTHER ==
[2021-12-05] MEDS ORDERED: ACETAMINOPHEN 1000 MG/100 ML BAG IVPB ONE (12:28)
[2021-12-05] MEDS ORDERED: SODIUM CHLORIDE 0.9% 500 ML INFUS.BAG IV ONE (12:28)
[2021-12-05] MEDS ORDERED: FAMOTIDINE 20 MG/50 ML IVPB 20 MG/50 ML MG IVPB ONE ×2 (12:29→12:31)
[2021-12-05] MEDS ORDERED: ONDANSETRON 4 MG/2 ML VIAL IVPB ONE (12:29)
[2021-12-05] MEDS ORDERED: ONDANSETRON 4 MG/2 ML VIAL ONE (12:31)
[2021-12-05] MEDS ORDERED: ACETAMINOPHEN INJECTION 100 ML IVPB ONE (12:31)
[2021-12-05 13:14] LABS: BASO % 0.8 % (0-2.0); EOS % 3.3 % (0-4.5); HEMATOCRIT 39.7 % (32.4-45.2); HEMOGLOBIN 13.4 GM/dL (10.7-15.3); LYMPH % 19.1 % (8-40); MCHC 33.8 g/dl (32.0-36.0); MEAN CELL VOLUME 82.9 fl (80-96); MEAN PLT VOLUME 8.7 fl (7.5-11.1); MONO % 6.6 % (3.8-10.2); NEUT % 70.2 % (42.8-82.8); RBC 4.78 M/mm3 (3.60-5.2); WHITE BLOOD COUNT 6.4 K/mm3 (4.0-10.0)
[2021-12-05 13:21] LABS: PLATELET COUNT 272 10^3/uL (134-434)
[2021-12-05 13:51] LABS: ALBUMIN 3.5 g/dl (3.4-5.0); CALCIUM 9.5 mg/dL (8.5-10.1)
[2021-12-05 13:52] LABS: BLOOD UREA NITROGEN 5.8 mg/dL (7-18); MAGNESIUM 2.4 mg/dL (1.8-2.4)
[2021-12-05 13:54] LABS: CREATININE 0.8 mg/dL (0.55-1.3)
[2021-12-05 13:56] LABS: BILIRUBIN,TOTAL 0.6 mg/dL (0.2-1); TOT PROT 7.6 g/dl (6.4-8.2)
[2021-12-05] MEDS ORDERED: metroNIDAZOLE 250 MG TABLET PO ONE (14:55)
[2021-12-05] MEDS ORDERED: metroNIDAZOLE 250 MG TABLET ONE (15:37)
[2021-12-05 17:06] LABS: EPI CELLS >36 /uL (0-25.1); HYALINE CASTS 5 /uL (0-3.1); PH,URINE 7.5 (5.0-8.0); URINE APPEARANCE CLEAR; URINE BILIRUBIN NEGATIVE (NEGATIVE); URINE COLOR YELLOW; URINE GLUCOSE (UA) NEGATIVE (NEGATIVE); URINE KETONE 1+ (NEGATIVE); URINE LEUK ESTERASE 1+ (NEGATIVE); URINE NITRITE NEGATIVE (NEGATIVE); URINE PROTEIN NEGATIVE (NEGATIVE); URINE RBC 2 /uL (0-23.9); URINE UROBILINOGEN 0.2 mg/dL (0.2-1.0); URINE WBC 27 /uL (0-25.8)
[2021-12-05 18:35] LABS: URINE BACTERIA 157 /uL (0-1359)
[2021-12-06] MEDS ORDERED: PARoxetine HCL 10 MG TABLET ONE ×2 (00:37→09:31)
[2021-12-06] MEDS ORDERED: PARoxetine HCL 10 MG TABLET PO SCH ×2 (00:45→22:00)
[2021-12-06] MEDS: PARoxetine HCL 10 MG TABLET PO SCH ×2 (00:46→09:35)
[2021-12-06 08:02] LABS: BASO % 0.7 % (0-2.0); EOS % 6.8 % (0-4.5); HEMATOCRIT 35.6 % (32.4-45.2); HEMOGLOBIN 12.1 GM/dL (10.7-15.3); LYMPH % 28.3 % (8-40); MCHC 33.9 g/dl (32.0-36.0); MEAN CELL VOLUME 82.7 fl (80-96); MEAN PLT VOLUME 8.4 fl (7.5-11.1); MONO % 8.6 % (3.8-10.2); NEUT % 55.6 % (42.8-82.8); PLATELET COUNT 220 10^3/uL (134-434); RDW 16.2 % (11.6-15.6); WHITE BLOOD COUNT 5.4 K/mm3 (4.0-10.0)
[2021-12-06 08:14] LABS: CALCIUM 8.8 mg/dL (8.5-10.1)
[2021-12-06 08:15] LABS: ALBUMIN 3.3 g/dl (3.4-5.0); BLOOD UREA NITROGEN 8.3 mg/dL (7-18); MAGNESIUM 2.1 mg/dL (1.8-2.4)
[2021-12-06 08:18] LABS: CREATININE 0.8 mg/dL (0.55-1.3); PHOSPHOROUS 3.9 mg/dL (2.5-4.9)
[2021-12-06 08:19] LABS: TOT PROT 6.6 g/dl (6.4-8.2)
[2021-12-06 08:20] LABS: BILIRUBIN,TOTAL 0.4 mg/dL (0.2-1)
[2021-12-06] MEDS ORDERED: ENOXAPARIN NA (PORCINE) 40 MG/0.4 ML DISP.SYRIN SQ ONE (09:31)
[2021-12-06] MEDS: ENOXAPARIN NA (PORCINE) 40 MG/0.4 ML DISP.SYRIN SQ SCH (09:35)
[2021-12-06] MEDS ORDERED: FLUCONAZOLE 150 MG TABLET PO ONE ×2 (13:37→13:40)
[2021-12-06] MEDS ORDERED: ONDANSETRON 4 MG/2 ML VIAL IVPUSH ONE (19:21)
[2021-12-06] MEDS ORDERED: ACETAMINOPHEN 1000 MG/100 ML BAG IVPB PRN (19:22)
[2021-12-06] MEDS ORDERED: KETOROLAC TROMETHAMINE 15 MG/ML VIAL IVPUSH ONE (22:53)
[2021-12-07 08:25] LABS: BASO % 0.7 % (0-2.0); HEMATOCRIT 36.5 % (32.4-45.2); HEMOGLOBIN 12.4 GM/dL (10.7-15.3); LYMPH % 22.3 % (8-40); MCH 28.2 pg (25.7-33.7); MCHC 34.1 g/dl (32.0-36.0); MEAN CELL VOLUME 82.5 fl (80-96); MEAN PLT VOLUME 8.1 fl (7.5-11.1); MONO % 8.1 % (3.8-10.2); NEUT % 62.9 % (42.8-82.8); PLATELET COUNT 229 10^3/uL (134-434); RBC 4.42 M/mm3 (3.60-5.2); RDW 15.8 % (11.6-15.6); WHITE BLOOD COUNT 5.3 K/mm3 (4.0-10.0)
[2021-12-07 08:42] LABS: CALCIUM 8.8 mg/dL (8.5-10.1)
[2021-12-07 08:43] LABS: BLOOD UREA NITROGEN 6.5 mg/dL (7-18)
[2021-12-07 08:46] LABS: CREATININE 0.7 mg/dL (0.55-1.3)
[2021-12-07] MEDS: ENOXAPARIN NA (PORCINE) 40 MG/0.4 ML DISP.SYRIN SQ SCH (09:42)
[2021-12-07] MEDS ORDERED: ONDANSETRON 4 MG/2 ML VIAL IVPUSH PRN (10:51)
[2021-12-07] MEDS: DIVALPROEX NA *ER* EXTEND REL 250 MG TABLET.SA PO SCH (13:11)
[2021-12-07] MEDS: ACETAMINOPHEN 325 MG TABLET (FP) PO PRN (21:52)
[2021-12-07] MEDS: PARoxetine HCL 10 MG TABLET PO SCH (21:52)
[2021-12-08] MEDS: ENOXAPARIN NA (PORCINE) 40 MG/0.4 ML DISP.SYRIN SQ SCH (09:37)
[2021-12-08] MEDS: DIVALPROEX NA *ER* EXTEND REL 250 MG TABLET.SA PO SCH ×2 (09:38→09:41)
[2021-12-08 13:21] LABS: BASO % 0.5 % (0-2.0); EOS % 4.2 % (0-4.5); HEMATOCRIT 38.1 % (32.4-45.2); HEMOGLOBIN 13.2 GM/dL (10.7-15.3); LYMPH % 20.3 % (8-40); MCH 28.5 pg (25.7-33.7); MCHC 34.5 g/dl (32.0-36.0); MEAN CELL VOLUME 82.4 fl (80-96); MONO % 4.8 % (3.8-10.2); NEUT % 70.2 % (42.8-82.8); PLATELET COUNT 243 10^3/uL (134-434); RBC 4.62 M/mm3 (3.60-5.2); RDW 15.8 % (11.6-15.6); WHITE BLOOD COUNT 7.8 K/mm3 (4.0-10.0)
[2021-12-08 13:57] VITALS: BMI 24.1
[2021-12-08] MEDS: PARoxetine HCL 10 MG TABLET PO SCH (21:46)
[2021-12-08] MEDS: PRAMIPEXOLE DIHYDROCHLORIDE 0.125 MG TABLET PO SCH (21:46)
[2021-12-08] MEDS: ACETAMINOPHEN 325 MG TABLET (FP) PO PRN (21:50)
[2021-12-09] MEDS: ENOXAPARIN NA (PORCINE) 40 MG/0.4 ML DISP.SYRIN SQ SCH (09:30)
[2021-12-09] MEDS: DIVALPROEX NA *ER* EXTEND REL 250 MG TABLET.SA PO SCH (09:30)
[2021-12-09] MEDS: PRAMIPEXOLE DIHYDROCHLORIDE 0.125 MG TABLET PO SCH (09:30)
[2021-12-09 13:49] VITALS: BP 118/64; PULSE 63; TEMP 98.8
[2021-12-10] MEDS ORDERED: PARoxetine HCL 20 MG TABLET PO SCH (10:00)
== END 2021-12-09 18:31 | disposition home or self-care (01) ==
LOC: JER 11:45 → JERBED 19:35 → J4W 12-06 14:32
PROVIDERS: ADMIT Hospitalist; ATTEND Internal Medicine
PROC: 3E033NZ Introduction of Analgesics, Hypnotics, Sedatives into Peripheral Vein, Percutaneous Approach (ICD-10-PCS; principal; 2021-12-05)
PROC: 3E033GC Introduction of Other Therapeutic Substance into Peripheral Vein, Percutaneous Approach (ICD-10-PCS; 2021-12-05)
PROC: 3E0333Z Introduction of Anti-inflammatory into Peripheral Vein, Percutaneous Approach (ICD-10-PCS; 2021-12-05)
PROC: 3E0337Z Introduction of Electrolytic and Water Balance Substance into Peripheral Vein, Percutaneous Approach (ICD-10-PCS; 2021-12-05)
DX: G43.909 Migraine, unspecified, not intractable, without status migrainosus (principal); N89.8 Other specified noninflammatory disorders of vagina; O99.893 Other specified diseases and conditions complicating puerperium; Z85.038 Personal history of other malignant neoplasm of large intestine; D64.9 Anemia, unspecified; Z91.041 Radiographic dye allergy status; R30.0 Dysuria; R53.1 Weakness; Z91.14 Patient's other noncompliance with medication regimen; F41.8 Other specified anxiety disorders; Z92.21 Personal history of antineoplastic chemotherapy; Z91.018 Allergy to other foods; Z91.011 Allergy to milk products
CPT/HCPCS: 0241U-QW; 36415; 70450-TC; 76705-TC; 80048; 80053; 81003; 82962; 83690; 83735; 84100; 84484; 85025; 87086; 87106; 87186; 93005; 93010; 96361; 96365; 96375; 96376; 99285-25; G0378

== ENCOUNTER 2022-03-01 04:06 | Day surgery (SDC) | payer OTHER ==
[2022-02-23 15:27] VITALS: BMI 26.7
[2022-03-01] MEDS ORDERED: MIDAZOLAM HCL 2 MG/2 ML SINGLE DOSE VIAL ONE (09:57)
[2022-03-01] MEDS ORDERED: DEXAMETHASONE SOD PHOSPHATE 4 MG/1 ML VIAL ONE (09:57)
[2022-03-01] MEDS ORDERED: LIDOCAINE HCL 2% 100 MG/5 ML DISP.SYRIN ONE (09:57)
[2022-03-01] MEDS ORDERED: ROCURONIUM BROMIDE 50 MG/5 ML SYRINGE ONE (09:57)
[2022-03-01] MEDS ORDERED: ONDANSETRON 4 MG/2 ML VIAL ONE (09:57)
[2022-03-01] MEDS ORDERED: PROPOFOL 20 ML ONE ×2 (09:57→12:14)
[2022-03-01] MEDS ORDERED: ONDANSETRON 4 MG/2 ML VIAL IVPUSH PRN (10:05)
[2022-03-01] MEDS ORDERED: ACETAMINOPHEN 325 MG TABLET (FP) PO PRN (10:05)
[2022-03-01] MEDS ORDERED: oxyCODONE HCL 5 MG TABLET PO PRN ×2 (10:05)
[2022-03-01] MEDS ORDERED: LACTATED RINGERS SOLUTION 1,000 ML IV SCH (10:15)
[2022-03-01] MEDS ORDERED: BUPIVACAINE HCL/PF 0.5% (5MG/ML) 10 ML VIAL IJ ONE (10:26)
[2022-03-01] MEDS ORDERED: ceFAZolin SODIUM 1 GM VIAL ONE ×2 (11:30)
[2022-03-01] MEDS ORDERED: KETOROLAC TROMETHAMINE 30 MG/1 ML VIAL ONE (11:42)
[2022-03-01] MEDS ORDERED: HYDROmorphone HCl 2 MG/ML VIAL ONE (11:43)
[2022-03-01] MEDS ORDERED: ACETAMINOPHEN INJECTION 200 ML IVPB ONE (11:47)
[2022-03-01] MEDS ORDERED: GLYCOPYRROLATE 0.2 MG/1 ML VIAL ONE ×2 (11:50)
[2022-03-01] MEDS ORDERED: NEOSTIGMINE METHYLSULFATE 0.5 MG/ML - 10 ML MDV ONE (11:50)
[2022-03-01 16:09] VITALS: BP 103/56; PULSE 72; RESP 18; TEMP 98.7
== END 2022-03-01 16:14 | disposition home or self-care (01) ==
LOC: JASU-SURG 04:06
PROVIDERS: ATTEND Surgery
PROC: 0WQF0ZZ Repair Abdominal Wall, Open Approach (ICD-10-PCS; principal; 2022-03-01 12:30)
DX: K42.9 Umbilical hernia without obstruction or gangrene (principal)
CPT/HCPCS: 88302-TC; 94760

== ENCOUNTER 2022-05-26 12:21 | Day surgery (SDC) | payer OTHER ==
[2022-05-26] MEDS ORDERED: IRON SUCROSE INJECTION 200 MG in SODIUM CHLORIDE 100 ML IVPB ONE (13:00)
[2022-05-26 16:46] VITALS: PULSE 64; RESP 16; TEMP 97.3
[2022-05-26 16:50] VITALS: BP 115/69
== END 2022-05-26 14:15 | disposition home or self-care (01) ==
LOC: JONCNONCHE 12:21
PROVIDERS: ATTEND Internal Medicine Hematology & Oncology
PROC: 3E033GC Introduction of Other Therapeutic Substance into Peripheral Vein, Percutaneous Approach (ICD-10-PCS; principal; 2022-05-26)
DX: D50.9 Iron deficiency anemia, unspecified (principal)
CPT/HCPCS: 96365; J1756

== ENCOUNTER 2022-06-02 16:19 | Day surgery (SDC) | payer OTHER ==
[2022-06-02 16:13] VITALS: BP 119/80; PULSE 69; RESP 20; TEMP 98.3
[~2022-06-02 16:19] MED LIST: IRON SUCROSE INJECTION 200 MG in SODIUM CHLORIDE 100 ML IVPB ONE
== END 2022-06-02 17:08 | disposition home or self-care (01) ==
LOC: JONCNONCHE 16:19
PROVIDERS: ATTEND Internal Medicine Hematology & Oncology
PROC: 3E033GC Introduction of Other Therapeutic Substance into Peripheral Vein, Percutaneous Approach (ICD-10-PCS; principal; 2022-06-02)
DX: D50.9 Iron deficiency anemia, unspecified (principal)
CPT/HCPCS: 96365; J1756

== ENCOUNTER 2022-06-09 12:27 | Day surgery (SDC) | payer OTHER ==
[2022-06-09] MEDS ORDERED: IRON SUCROSE INJECTION 200 MG in SODIUM CHLORIDE 100 ML IVPB ONE (13:00)
[2022-06-09 19:00] VITALS: BP 114/64; PULSE 63; RESP 20; TEMP 98.7
== END 2022-06-09 14:30 | disposition home or self-care (01) ==
LOC: JONCNONCHE 12:27
PROVIDERS: ATTEND Internal Medicine Hematology & Oncology
PROC: 3E033GC Introduction of Other Therapeutic Substance into Peripheral Vein, Percutaneous Approach (ICD-10-PCS; principal; 2022-06-09)
DX: D50.9 Iron deficiency anemia, unspecified (principal)
CPT/HCPCS: 96365; J1756

== ENCOUNTER 2022-06-23 12:47 | Day surgery (SDC) | payer OTHER ==
[2022-06-23 17:30] VITALS: BP 100/70; PULSE 87; RESP 18; TEMP 97.8
== END 2022-06-23 17:32 | disposition home or self-care (01) ==
LOC: JONCNONCHE 12:47
PROVIDERS: ATTEND Internal Medicine Hematology & Oncology
PROC: 3E033GC Introduction of Other Therapeutic Substance into Peripheral Vein, Percutaneous Approach (ICD-10-PCS; principal; 2022-06-23)
DX: D50.9 Iron deficiency anemia, unspecified (principal)
CPT/HCPCS: 96365; J1756

== ENCOUNTER 2022-12-27 12:29 | Day surgery (SDC) | payer OTHER ==
[2022-12-27 18:16] VITALS: RESP 18; TEMP 98.2
[2022-12-27 18:17] VITALS: BP 127/75; PULSE 72
== END 2022-12-27 14:00 | disposition home or self-care (01) ==
LOC: JONCNONCHE 12:29
PROVIDERS: ATTEND Internal Medicine Hematology & Oncology
PROC: 3E033GC Introduction of Other Therapeutic Substance into Peripheral Vein, Percutaneous Approach (ICD-10-PCS; principal; 2022-12-27)
DX: D50.9 Iron deficiency anemia, unspecified (principal)
CPT/HCPCS: 96365; J1756

== ENCOUNTER 2023-01-03 12:25 | Day surgery (SDC) | payer OTHER ==
[2023-01-03 17:47] VITALS: BP 114/71; PULSE 74; RESP 18; TEMP 98.7
== END 2023-01-03 13:30 | disposition home or self-care (01) ==
LOC: J7W 12:25 → JONCNONCHE 12:25
PROVIDERS: ATTEND Internal Medicine Hematology & Oncology
PROC: 3E033GC Introduction of Other Therapeutic Substance into Peripheral Vein, Percutaneous Approach (ICD-10-PCS; principal; 2023-01-03)
DX: D50.9 Iron deficiency anemia, unspecified (principal)
CPT/HCPCS: 96365; J1756

== ENCOUNTER 2023-01-17 12:32 | Day surgery (SDC) | payer OTHER ==
[2023-01-17 17:17] VITALS: BP 129/79; PULSE 70; RESP 18; TEMP 98
== END 2023-01-17 13:45 | disposition home or self-care (01) ==
LOC: J7W 12:32 → JONCNONCHE 12:32
PROVIDERS: ATTEND Internal Medicine Hematology & Oncology
PROC: 3E033GC Introduction of Other Therapeutic Substance into Peripheral Vein, Percutaneous Approach (ICD-10-PCS; principal; 2023-01-17)
DX: D50.9 Iron deficiency anemia, unspecified (principal)
CPT/HCPCS: 96365; J1756

== ENCOUNTER 2024-01-10 04:31 | Day surgery (SDC) | payer OTHER ==
[2024-01-08 10:26] VITALS: BMI 28.7
[2024-01-10 10:03] VITALS: TEMP 98
[2024-01-10 10:34] VITALS: BP 105/56; PULSE 65; RESP 16
== END 2024-01-10 10:42 | disposition home or self-care (01) ==
LOC: JASU-ENDO 04:31
PROVIDERS: ATTEND Internal Medicine Gastroenterology
PROC: 0DJD8ZZ Inspection of Lower Intestinal Tract, Via Natural or Artificial Opening Endoscopic (ICD-10-PCS; principal; 2024-01-10 10:00)
DX: Z12.11 Encounter for screening for malignant neoplasm of colon (principal); K64.8 Other hemorrhoids; Z98.0 Intestinal bypass and anastomosis status
CPT/HCPCS: 81025

== ENCOUNTER 2024-01-15 18:48 | Emergency (ER) | payer OTHER ==
[2024-01-15 19:35] VITALS: BMI 28.8
[2024-01-15] MEDS ORDERED: FAMOTIDINE 20 MG/50 ML IVPB 20 MG/50 ML MG IVPB ONE (20:32)
[2024-01-15] MEDS ORDERED: ONDANSETRON 4 MG/2 ML VIAL ONE (20:34)
[2024-01-15] MEDS: ONDANSETRON 4 MG/2 ML VIAL IVPUSH ONE (20:41)
[2024-01-15] MEDS: LACTATED RINGERS SOLUTION 1000 ML INFUS.BAG IV ONE (20:41)
[2024-01-15] MEDS: FAMOTIDINE 20 MG/50 ML IVPB 20 MG/50 ML MG IVPB ONE (20:41)
[2024-01-15 21:00] LABS: BASO % 0.3 % (0-2.0); EOS % 0.2 % (0-4.5); HEMATOCRIT 37.9 % (32.4-45.2); HEMOGLOBIN 13.1 GM/dL (10.7-15.3); LYMPH % 8.7 % (8-40); MCH 28.9 pg (25.7-33.7); MCHC 34.4 g/dl (32.0-36.0); MEAN CELL VOLUME 84.1 fl (80-96); MEAN PLT VOLUME 8.3 fl (7.5-11.1); MONO % 4.9 % (3.8-10.2); NEUT % 85.9 % (42.8-82.8); PLATELET COUNT 273 10^3/uL (134-434); RBC 4.51 M/mm3 (3.60-5.2); RDW 12.9 % (11.6-15.6); WHITE BLOOD COUNT 14.1 K/mm3 (4.0-10.0)
[2024-01-15 21:11] LABS: INR 1.12 (0.83-1.09); PROTHROMBIN TIME (PATIENT) 12.6 SEC (9.7-13.0)
[2024-01-15 21:14] LABS: ACTIVATED PTT 31.8 SECONDS (25.2-36.5)
[2024-01-15 21:48] LABS: POTASSIUM 3.6 mmol/L (3.5-5.1)
[2024-01-15 21:50] LABS: CALCIUM 9.4 mg/dL (8.5-10.1)
[2024-01-15 21:51] LABS: ALBUMIN 4.1 g/dl (3.4-5.0); BLOOD UREA NITROGEN 11.5 mg/dL (7-18); MAGNESIUM 2.3 mg/dL (1.8-2.4)
[2024-01-15 21:54] LABS: CREATININE 0.8 mg/dL (0.55-1.3)
[2024-01-15 21:56] LABS: BILIRUBIN,TOTAL 0.8 mg/dL (0.2-1); TOT PROT 7.6 g/dl (6.4-8.2)
[2024-01-15] MEDS: morphine CARPU-JECT 4 MG/1 ML DISP.SYRIN IVPUSH ONE (22:11)
[2024-01-16] MEDS ORDERED: MAG HYDROX/AL HYDROX/SIMETH 30 ML UNIT-DOSE CUP ONE (00:43)
[2024-01-16] MEDS: MAG HYDROX/AL HYDROX/SIMETH 30 ML UNIT-DOSE CUP PO ONE (00:47)
[2024-01-16] MEDS ORDERED: ACETAMINOPHEN INJECTION 100 ML IVPB ONE (01:03)
[2024-01-16] MEDS: ACETAMINOPHEN 1000 MG/100 ML BAG IVPB ONE (01:10)
[2024-01-16 01:31] VITALS: BP 104/61; PULSE 74; RESP 18; TEMP 97.8
== END 2024-01-16 01:52 | disposition home or self-care (01) ==
LOC: JER 18:48
PROC: 3E033GC Introduction of Other Therapeutic Substance into Peripheral Vein, Percutaneous Approach (ICD-10-PCS; principal; 2024-01-16)
PROC: 3E033NZ Introduction of Analgesics, Hypnotics, Sedatives into Peripheral Vein, Percutaneous Approach (ICD-10-PCS; 2024-01-16)
PROC: 3E033GC Introduction of Other Therapeutic Substance into Peripheral Vein, Percutaneous Approach (ICD-10-PCS; 2024-01-16)
DX: R10.84 Generalized abdominal pain (principal); R11.2 Nausea with vomiting, unspecified; K80.20 Calculus of gallbladder without cholecystitis without obstruction
CPT/HCPCS: 36415; 74176-TC; 76705-TC; 80053; 83690; 83735; 84703; 85025; 85610; 85730; 90471; 96365; 96375; 99285-25; J0131

== ENCOUNTER 2024-02-26 05:11 | Day surgery (SDC) | payer OTHER ==
[2024-02-21 14:50] VITALS: BMI 29.5
[2024-02-26 11:15] VITALS: TEMP 98
[2024-02-26 11:32] VITALS: BP 111/69; PULSE 71; RESP 18
== END 2024-02-26 11:47 | disposition home or self-care (01) ==
LOC: JASU-ENDO 05:11
PROVIDERS: ATTEND Internal Medicine Gastroenterology
PROC: 0DB68ZX Excision of Stomach, Via Natural or Artificial Opening Endoscopic, Diagnostic (ICD-10-PCS; 2024-02-26)
PROC: 0DB98ZX Excision of Duodenum, Via Natural or Artificial Opening Endoscopic, Diagnostic (ICD-10-PCS; principal; 2024-02-26 10:30)
DX: K29.50 Unspecified chronic gastritis without bleeding (principal); K44.9 Diaphragmatic hernia without obstruction or gangrene
CPT/HCPCS: 88305-TC; 88342-TC

== ENCOUNTER → 2024-06-04 | Day surgery (SDC) | payer OTHER | END | disposition home or self-care (01) | LOC: JRADUS-SUR 11:26 | PROVIDERS: ATTEND Internal Medicine Hematology & Oncology | PROC: 0H9T3ZX Drainage of Right Breast, Percutaneous Approach, Diagnostic (ICD-10-PCS; principal; 2024-06-04) | DX: N63.10 Unspecified lump in the right breast, unspecified quadrant (principal) | CPT/HCPCS: 19083; 76942-TC; 77065-TC; 87899; 88305-TC; A4648 ==

== ENCOUNTER 2024-08-13 05:11 | Day surgery (SDC) | payer OTHER ==
[2024-08-08 12:28] VITALS: BMI 29.3
[2024-08-13] MEDS ORDERED: BUPIVACAINE HCL/PF 0.5% (5MG/ML) 10 ML VIAL ONE (15:27)
[2024-08-13] MEDS ORDERED: LIDOCAINE HCL 1%, 10 MG/ML (20ML VIAL) ONE (15:27)
[2024-08-13] MEDS ORDERED: PROPOFOL 20 ML ONE (16:28)
[2024-08-13] MEDS ORDERED: MIDAZOLAM HCL 2 MG/2 ML SINGLE DOSE VIAL ONE (16:30)
[2024-08-13] MEDS: LIDOCAINE HCL 1%, 10 MG/ML (20ML VIAL) NR ONE (16:42)
[2024-08-13] MEDS: ceFAZolin SODIUM 1 GM VIAL IVPB ONE (16:48)
[2024-08-13] MEDS ORDERED: DEXAMETHASONE SOD PHOSPHATE 4 MG/1 ML VIAL ONE (17:05)
[2024-08-13] MEDS ORDERED: ONDANSETRON 4 MG/2 ML VIAL ONE (17:05)
[2024-08-13] MEDS ORDERED: KETOROLAC TROMETHAMINE 30 MG/1 ML VIAL ONE (17:05)
[2024-08-13] MEDS ORDERED: ACETAMINOPHEN INJECTION 100 ML ONE (17:41)
[2024-08-13] MEDS: ACETAMINOPHEN 1000 MG/100 ML BAG IVPB ONE (17:45)
[2024-08-13 18:57] VITALS: RESP 16
[2024-08-13 19:30] VITALS: BP 109/60; PULSE 90; TEMP 97.5
== END 2024-08-13 19:30 | disposition home or self-care (01) ==
LOC: JASU-SURG 05:11
PROVIDERS: ATTEND Surgery
PROC: 0HBT0ZZ Excision of Right Breast, Open Approach (ICD-10-PCS; principal; 2024-08-13 14:00)
DX: D24.1 Benign neoplasm of right breast (principal)
CPT/HCPCS: 81025; 88307-TC; 94760; J0131